=== PATIENT | female | born 1960 | race Caucasian/White ===

== ENCOUNTER → 2016-09-16 | Outpatient (CLI) | payer OTHER ==
[~2016-09-16] MED LIST: ASTN; ATEN-173 PO; ATOR10TA82 PO; DOCU100C PO; FEXO1TAB46 PO; FIBER PO; LOSA1TAB PO; MISCCAP80 PO; MONT1TAB5 PO; MTR/600 PO; PRED1SUS3 OP; PROAIR INH; TRIA37.5 PO
[2016-09-16 13:09] LABS: BASO % 0.7 %; BASO ABS # 0.04 K/uL (0-0.2); COMPLETE YES; EOS % 2.2 %; HEMATOCRIT 46.7 % (37-47); IG% 0.3 %; LYMPH % 30.8 %; LYMPH ABS # 1.84 K/uL (1.2-3.4); MEAN CELL VOLUME 90.7 fL (80-100); MEAN CORPUSCULAR HEMOGLOBIN 31.5 pg (25-34); MEAN CORPUSCULAR HGB CONC 34.7 g/dl (32-36); MEAN PLATELET VOLUME 8.8 fL (7.4-10.4); MONO % 9.9 %; NEUT % 56.1 %; PLATELET COUNT 402 K/uL (130-400); RED BLOOD COUNT 5.15 M/uL (4.2-5.4); WHITE BLOOD COUNT 5.98 K/uL (4.8-10.8)
[2016-09-16 13:45] LABS: ALB/GLOB RATIO 1.2 (0.9-2); ALKALINE PHOSPHATASE 65 U/L (45-117); ALT/SGPT 33 U/L (12-78); AST/SGOT 25 U/L (15-37); BLOOD UREA NITROGEN 11 mg/dl (7-18); BUN/CREATININE RATIO 12.3 (10-20); CALCIUM 9.8 mg/dl (8.5-10.1); CARBON DIOXIDE 32 mmol/L (21-32); CHLORIDE 97 mmol/L (98-107); CHOLESTEROL 234 mg/dl (0-200); CHOLESTEROL/HDL RATIO 3.7; CREATININE 0.88 mg/dl (0.60-1.20); GLUCOSE 78 mg/dl (70-99); HDL CHOLESTEROL 64 mg/dl; LDL CHOLESTEROL CALCULATED 137 mg/dl; POTASSIUM 4.2 mmol/L (3.5-5.1); SODIUM 132 mmol/L (136-145); TRIGLYCERIDES 165 mg/dl (0-150); VERY LOW DENSITY LIPOPROT CALC 33 mg/dl
== END | disposition home or self-care (01) ==
LOC: C.LABPVFM 08:52
PROVIDERS: ATTEND Internal Medicine
DX: J45.909 Unspecified asthma, uncomplicated (principal); E87.1 Hypo-osmolality and hyponatremia; E78.5 Hyperlipidemia, unspecified

== ENCOUNTER → 2016-11-27 | Outpatient (CLI) | payer OTHER ==
--- NOTE | 2016-11-27 12:18 | DIAGNOSTIC IMAGING REPORT ---
CHEST 2 VIEWS ROUTINE HISTORY:56 [id number] cough COMPARISON: None available TECHNIQUE: Frontal and lateral views of the chest FINDINGS: Cardiomediastinal and hilar silhouettes are within normal limits. There is no pneumothorax, pleural effusion, focal airspace consolidation or overt pulmonary edema. There is convex right curvature of the lumbar spine, only partially imaged. The bones appear grossly intact. IMPRESSION: No acute cardiopulmonary process. The above report was generated using voice recognition software. It may contain grammatical, syntax or spelling errors. Electronically signed by: Reagan Douglas M.D. 11/27/2016 12:17 PM Dictated Date/Time: 11/27/2016 12:15 PM
== END | disposition home or self-care (01) ==
LOC: C.RAD1850 11:44
PROVIDERS: ATTEND Physician Assistant
DX: R05 Cough (principal)

== ENCOUNTER 2017-03-28 18:53 | Emergency (ER) | payer OTHER ==
[~2017-03-28] VITALS: Ht 152.4 cm; Wt 69.2 kg
[2017-03-28 19:07] VITALS: Ht 152.4 cm; Wt 69.2 kg
[2017-03-28] MEDS ORDERED: LOSARTAN POTASSIUM 25 MG TAB PO STA (19:16)
[2017-03-28] MEDS ORDERED: KETOROLAC TROMETHAMINE 30 MG/ML VIAL IV STA (19:16)
[2017-03-28] MEDS ORDERED: ONDANSETRON 4MG OD TAB PO ONE (19:30)
--- NOTE | 2017-03-28 19:41 | EMERGENCY ROOM VISIT NOTE ---
History Report prepared by Milly: Giovanni Guerrero Under the Supervision of: Dr. Markus Aparicio M.D. First contact with patient: 19:15 Chief Complaint: ABDOMINAL PAIN Stated Complaint: LOW ABD PAIN GOING TO BACK History of Present Illness The patient is a 56 year old female who presents to the Emergency Room with complaints of intermittent lower abdominal pain beginning three days ago. She states that she began feeling ill three days ago. She states that she defecated less than normal two days ago during the day, and had a large bowel movement at night. The patient had a similar pattern occur yesterday. She was seen by her PCP today and was schedule for an abdominal ultrasound tomorrow. She took Gas-X and Correctol for her symptoms but has seen no relief. The patient also complains of nausea and pain radiating into her back. She denies vomiting, cough , known fevers, chills, or urinary symptoms. She has a history of similar pain associated with IBS, but states that her pain was a little higher in her abdomen previously. The patient states that her pain is currently worse in her right back than across the front of the abdomen. Source of History: patient Onset: Three days ago Position: abdomen (lower) Timing: intermittent Associated Symptoms: + nausea, + back pain, No fevers (known), No chills, No cough, No vomiting Review of Systems See HPI for pertinent positives & negatives. A total of 10 systems reviewed and were otherwise negative. Past Medical & Surgical Medical Problems: (1) IBS (irritable bowel syndrome) (2) No Known Active Medical Problems Family History No pertinent family history stated. Social History Smoking Status: Never Smoker Occupation Status: employed Allergies Coded Allergies: Apple (Verified Allergy, Severe, SWELLING, 06/18/09) Fish Oil (Verified Allergy, Severe, SWELLING AND ASTHMA, 06/18/09) NUTS (Verified Allergy, Severe, SWELLING AND ASTHMA, 12/13/03) Sulfa Drugs (Verified Allergy, Severe, SWELLING AND ASTHMA, 06/18/09) Physical Exam Vital Signs Date Time Temp Pulse Resp B/P (MAP) Pulse Ox O2 Delivery O2 Flow Rate FiO2 03/28/17 19:15 36.8 69 20 180/103 96 Room Air 03/28/17 19:07 36.7 80 18 189/103 97 Room Air Physical Exam GENERAL: Patient is in no acute distress. HEENT: No acute trauma, normocephalic atraumatic, mucous membranes moist, no nasal congestion, no scleral icterus. NECK: No stridor, no adenopathy, no meningismus, trachea is midline. LUNGS: Clear to auscultation bilaterally, no wheeze, no rhonchi, breath sounds equal. HEART: Without murmurs gallops or rubs, regular rate and rhythm. ABDOMEN: Soft, bowel sounds positive, no hernias, no peritonitis. Mildly tender in the RLQ. EXTREMITIES: No cyanosis or edema, full range of motion of all the joints without pain or difficulty, no signs for acute trauma. NEUROLOGIC: Oriented x 3, no acute motor or sensory deficits, no focal weakness. SKIN: No rash, no jaundice, no diaphoresis. Medical Decision & Procedures Laboratory Results 03/28/17 19:55 Red Blood Count 4.90, Mean Corpuscular Volume 87.8, Mean Corpuscular Hemoglobin 31.8, Mean Corpuscular Hemoglobin Concent 36.3, Mean Platelet Volume 8.5, Neutrophils (%) (Auto) 72.1, Lymphocytes (%) (Auto) 22.0, Monocytes (%) (Auto) 5.1, Eosinophils (%) (Auto) 0.4, Basophils (%) (Auto) 0.2, Neutrophils # (Auto) 7.14, Lymphocytes # (Auto) 2.18, Monocytes # (Auto) 0.51, Eosinophils # (Auto) 0.04, Basophils # (Auto) 0.02 Test 03/28/17 19:35 03/28/17 19:55 Urine Color YELLOW Urine Appearance CLEAR (CLEAR) Urine pH 6.5 (4.5-7.5) Urine Specific [place] 1.013 (1.000-1.030) Urine Protein 2+ (NEG) Urine Glucose (UA) NEG (NEG) Urine Ketones 1+ (NEG) Urine Occult Blood TRACE (NEG) Urine Nitrite NEG (NEG) Urine Bilirubin NEG (NEG) Urine Urobilinogen NEG (NEG) Urine Leukocyte Esterase NEG (NEG) Urine WBC (Auto) 1-5 /hpf (0-5) Urine RBC (Auto) 0-4 /hpf (0-4) Urine Hyaline Casts (Auto) 1-5 /lpf (0-5) Urine Epithelial Cells (Auto) 5-10 /lpf (0-5) Urine Bacteria (Auto) NEG (NEG) White Blood Count 9.91 K/uL (4.8-10.8) Red Blood Count 4.90 M/uL (4.2-5.4) Hemoglobin 15.6 g/dL (12.0-16.0) Hematocrit 43.0 % (37-47) Mean Corpuscular Volume 87.8 fL (80-100) Mean Corpuscular Hemoglobin 31.8 pg (25-34) Mean Corpuscular Hemoglobin Concent 36.3 g/dl (32-36) Platelet Count 340 K/uL (130-400) Mean Platelet Volume 8.5 fL (7.4-10.4) Neutrophils (%) (Auto) 72.1 % Lymphocytes (%) (Auto) 22.0 % Monocytes (%) (Auto) 5.1 % Eosinophils (%) (Auto) 0.4 % Basophils (%) (Auto) 0.2 % Neutrophils # (Auto) 7.14 K/uL (1.4-6.5) Lymphocytes # (Auto) 2.18 K/uL (1.2-3.4) Monocytes # (Auto) 0.51 K/uL (0.11-0.59) Eosinophils # (Auto) 0.04 K/uL (0-0.5) Basophils # (Auto) 0.02 K/uL (0-0.2) RDW Standard Deviation 39.4 fL (36.4-46.3) RDW Coefficient of Variation 12.3 % (11.5-14.5) Immature Granulocyte % (Auto) 0.2 % Immature Granulocyte # (Auto) 0.02 K/uL (0.00-0.02) Laboratory results reviewed by me. Medications Administered Medications (Trade) Dose Ordered Sig/Anupam Route Start Time Stop Time Status Last Admin Dose Admin Ondansetron HCl (Zofran Odt) 4 mg ONE ONCE PO 03/28/17 19:30 03/28/17 19:31 DC 03/28/17 20:01 4 MG Ketorolac Tromethamine (Toradol Inj) 30 mg NOW STAT IV 03/28/17 19:16 03/28/17 19:26 DC 03/28/17 20:00 30 MG Losartan Potassium (coZAAR TAB) 25 mg NOW STAT PO 03/28/17 19:16 03/28/17 19:26 DC 03/28/17 20:01 25 MG ED Course 1915: The patient was evaluated in room C10. A complete history and physical exam was performed. Ordered Cozaar Tab 25 mg PO, Toradol Inj 30 mg IV. 1929: Ordered Zofran Odt 4 mg PO. 2029: The patient was signed out to Dr. Gay at the change of shift pending CT results. Medical Decision The patient is a 56 year old female who presents to the ED with complaints of lower abdominal pain. Differential diagnoses considered include constipation, appendicitis, diverticulitis, pancreatitis, biliary colic, hernia, ovarian cyst , musculoskeletal pain and UTI. There is no leukocytosis or concerning anemia. Urinalysis does not show evidence for infection. Renal panel and liver profile testing is currently pending. Pancreas testing is pending. Abdominal and pelvis CT is pending. On exam, the patient was not febrile or toxic. There was no peritonitis. The patient presents with a few days of colicky abdominal pain which now seems mostly to be on the right side and into the right back. Her symptoms worsened today and she was referred to the ER. The cause for the pain is unclear. Her workup is underway. The patient did receive IV Toradol and oral Zofran for symptom control. She was hypertensive but had not taken her Cozaar today. She was given this medication orally. The patient's case is being assumed by Dr. Gay, please see his notes for the remaining test results and the final disposition and plan. Medication Reconcilliation Current Medication List: was personally reviewed by me Blood Pressure Screening Patient's blood pressure: Elevated blood pressure Blood pressure disposition: Referred to PCP Impression Primary Impression: Right sided abdominal pain Scribe Attestation The scribe's documentation has been prepared under my direction and personally reviewed by me in its entirety. I confirm that the note above accurately reflects all work, treatment, procedures, and medical decision making performed by me. Departure Information Dispostion Still a Patient (Signed out to Dr. Gay ) Referrals Mathew Montelongo M.D. (PCP) Patient Instructions [facility]
[2017-03-28] MEDS ORDERED: OPTIRAY 320 IV PRN (19:45)
[2017-03-28 20:18] LABS: BASO % 0.2 %; BASO ABS # 0.02 K/uL (0-0.2); COMPLETE YES; EOS % 0.4 %; IG% 0.2 %; LYMPH ABS # 2.18 K/uL (1.2-3.4); MEAN CELL VOLUME 87.8 fL (80-100); MEAN CORPUSCULAR HEMOGLOBIN 31.8 pg (25-34); MEAN CORPUSCULAR HGB CONC 36.3 g/dl (32-36); MEAN PLATELET VOLUME 8.5 fL (7.4-10.4); MONO % 5.1 %; NEUT % 72.1 %; PLATELET COUNT 340 K/uL (130-400); WHITE BLOOD COUNT 9.91 K/uL (4.8-10.8)
[2017-03-28 20:29] LABS: MANUAL MICROSCOPIC REQUIRED? NO; REVIEW REQ? NO; URINE APPEARANCE CLEAR (CLEAR); URINE BILIRUBIN NEG (NEG); URINE COLOR YELLOW; URINE NITRITE NEG (NEG); URINE PH 6.5 (4.5-7.5); URINE SPECIFIC GRAVITY 1.013 (1.000-1.030); UROBILINOGEN NEG (NEG); ZZUR CULT IF INDIC CLEAN CATCH NO
--- NOTE | 2017-03-28 20:30 | EMERGENCY ROOM VISIT NOTE ---
ED Visit Note First contact with patient: 20:30 s/o from Dr. Aparicio. RLQ pain. CT abd-pel pending. Labs pending. If negative d/c with pcp f/u. WBC within normal limits. Otherwise patient does have a mildly low sodium at 129 setting of a history of fluctuating sodium levels followed by her doctor for this. UA with small amount of blood however has a nonobstructing right renal stone which may explain, although unlikely to explain the patient's pain given its nonobstructing nature. Otherwise CT abdomen and pelvis did demonstrate question of a mild colitis though the patient has no left upper quadrant or left-sided discomfort. However, it is possible that the sigmoid component could explain some of her right-sided symptoms. I reevaluated the patient and the patient felt improved and no longer had any pain. I did explain that there were no clear right-sided findings to explain her pain and thus an intermittent ovarian torsion could be possible. The patient preferred to defer transvaginal ultrasound at this time and will continue to monitor symptoms and knows to return if symptoms return. Findings and plan for follow- up reviewed with patient. Patient agreeable and d/c'd per discharge instructions.
[2017-03-28 20:43] LABS: BUN/CREATININE RATIO 9.6 (10-20); CALCIUM 9.4 mg/dl (8.5-10.1); CREATININE 0.69 mg/dl (0.60-1.20); POTASSIUM 3.3 mmol/L (3.5-5.1)
[2017-03-28 20:46] LABS: ALB/GLOB RATIO 1.2 (0.9-2)
[2017-03-28] MEDS ORDERED: PROAIR INH (21:11)
[2017-03-28] MEDS ORDERED: MONT1TAB5 PO (21:11)
[2017-03-28] MEDS ORDERED: FEXO1TAB46 PO (21:11)
[2017-03-28] MEDS ORDERED: ATEN-173 PO (21:11)
[2017-03-28] MEDS ORDERED: DOCU100C PO (21:11)
[2017-03-28] MEDS ORDERED: LOSA1TAB PO (21:11)
[2017-03-28] MEDS ORDERED: MISCCAP80 PO (21:11)
[2017-03-28] MEDS ORDERED: PRED1SUS3 OP (21:11)
[2017-03-28] MEDS ORDERED: ASTN (21:11)
[2017-03-28] MEDS ORDERED: TRIA37.5 PO (21:11)
[2017-03-28] MEDS ORDERED: FIBER PO (21:11)
[2017-03-28] MEDS ORDERED: ATOR10TA82 PO (21:11)
--- NOTE | 2017-03-28 22:41 | DIAGNOSTIC IMAGING REPORT ---
ABDOMEN AND PELVIS CT WITH IV CONTRAST CT DOSE: 388.58 mGy.cm HISTORY: Acute generalized abdominal pain. Initial exam. ABD PAIN, POSS APPY or divertic, IV CONTRAST ONLY TECHNIQUE: Multiaxial CT images of the abdomen and pelvis were performed following the use of intravenous contrast. A dose lowering technique was utilized adhering to the principles of ALARA. COMPARISON STUDY: None. FINDINGS: Lung bases are generally clear with minimal bibasilar atelectasis. No pneumoperitoneum identified. Imaged inferior cardiac chambers are unremarkable. 6 mm low attenuating lesion of the left hepatic lobe suggests cyst. There is no intrahepatic biliary ductal dilation. The spleen, pancreas, gallbladder and adrenal glands are unremarkable. There is moderate to severe right renal atrophy with multifocal areas of renal parenchymal scarring. Nonobstructing 3 mm calculus of the inferior pole right kidney is noted. Areas of mild cortical scarring are seen throughout the left kidney. No hydronephrosis. Bilateral ureters appear normal. Uterus and adnexa are unremarkable. The aorta is normal in course and caliber with moderate mixed plaquing. No bulky adenopathy. There is no bowel obstruction identified. There is moderate wall thickening of the colon extending from the splenic flexure through the rectum. Mild clonic diverticulosis without evidence of acute diverticulitis. Areas of mild wall thickening also seen throughout the transverse colon with partial distention. Pancreas appears normal. Soft tissues are unremarkable. Multilevel degenerative changes of the spine. Dextroscoliosis of the lumbar spine. IMPRESSION: 1. Moderate wall thickening of the colon extending from the splenic flexure through the rectum is suspicious for mild colitis. Nondistention however may also cause this appearance. 2. Colonic diverticulosis without diverticulitis. 3. Normal appendix. 4. Moderate to severe atrophy with multifocal scarring of the right kidney. 3 mm nonobstructing calculus of the inferior pole right kidney also noted. Electronically signed by: Reagan Douglas M.D. 03/28/2017 10:39 PM Dictated Date/Time: 03/28/2017 10:34 PM
[2017-03-28] MEDS ORDERED: MTR/600 PO (23:17)
[2017-03-28] MEDS ORDERED: IBUPROFEN 600 MG TAB PO STA (23:18)
[2017-03-28] MEDS ORDERED: EMPTY 8 DRAM VIAL ONE (23:28)
[2017-03-28 23:33] VITALS: BP 162/103; PULSE 77; TEMP 36.7; O2SAT 96
== END 2017-03-28 23:42 | disposition home or self-care (01) ==
LOC: C.EDB 18:54 → C.EDC 23:42
DX: R10.31 Right lower quadrant pain (principal); K58.9 Irritable bowel syndrome, unspecified

== ENCOUNTER → 2017-09-22 | Outpatient (CLI) | payer OTHER ==
[2017-09-22 13:09] LABS: HEMATOCRIT 45.8 % (37-47); HEMOGLOBIN 16.5 g/dL (12.0-16.0); MEAN CELL VOLUME 89.3 fL (80-100); MEAN CORPUSCULAR HEMOGLOBIN 32.2 pg (25-34); PLATELET COUNT 426 K/uL (130-400); RED CELL DISTRIBUTION WIDTH CV 12.5 % (11.5-14.5); RED CELL DISTRIBUTION WIDTH SD 40.4 fL (36.4-46.3)
[2017-09-22 13:21] LABS: ALT/SGPT 33 U/L (12-78); AST/SGOT 25 U/L (15-37); BLOOD UREA NITROGEN 10 mg/dl (7-18); CARBON DIOXIDE 25 mmol/L (21-32); CREATININE 0.82 mg/dl (0.60-1.20); GLUCOSE 77 mg/dl (70-99); POTASSIUM 3.8 mmol/L (3.5-5.1); SODIUM 135 mmol/L (136-145)
[2017-09-22 13:24] LABS: CHOLESTEROL 238 mg/dl (0-200); LDL CHOLESTEROL CALCULATED 154 mg/dl
== END | disposition home or self-care (01) ==
LOC: C.LAB1850 09:43
PROVIDERS: ATTEND Internal Medicine
DX: E78.5 Hyperlipidemia, unspecified (principal); N20.0 Calculus of kidney; I10 Essential (primary) hypertension; E87.1 Hypo-osmolality and hyponatremia

== ENCOUNTER 2019-06-15 08:16 | Inpatient (IN) ==
[2019-06-15] MEDS ORDERED: ONDANSETRON INJ 2 MG/ML 2 ML VIAL IV STA (09:00)
[2019-06-15] MEDS ORDERED: MoRPHine SULFATE 4 MG/ML 1 ML CARP\\VIAL IV STA (09:00)
[2019-06-15] MEDS ORDERED: SODIUM CHLORIDE 0.9% 1000ML 1,000 ML IV SCH (09:01)
--- NOTE | 2019-06-15 09:06 | Emergency Department Note ---
History of Present Illness General Chief complaint: Abdominal Pain Stated complaint: ABDOMINAL PAIN, LOW GRADE FEVER Time Seen by Provider: 06/15/19 08:41 History of Present Illness Maximum Pain Intensity: 9 Patient is a 50-year-old female with past medical history significant for dyslipidemia, hypertension and IBS who presents the emergency department for evaluation of diffuse abdominal pain. Her symptoms started about 4 days ago. She describes pain from the lower ribs down to her hips. She admits to nausea and anorexia without vomiting. The pain eased 2 days ago, she was mostly pain- free yesterday, then the discomfort returned this morning around 0 630. She states that she woke up, had a normal bowel movement, then the pain returned. She notes a constant, stabbing pain throughout the entire anterior abdomen. She states that she felt nauseous but did not vomit. She reports pressure with urination, but denies dysuria or hematuria. She tried taking ibuprofen for her symptoms. She rates her pain a 9/10 currently. She denies melena or hematochezia. She is postmenopausal. No history of abdominal surgeries. She does report that she was told that she had a kidney stone the last time she was in the emergency department. Home Medications Home Medications Medication Instructions Recorded Confirmed Type carvedilol 12.5 mg tablet 12.5 mg PO BID 01/08/19 06/15/19 History docusate sodium 100 mg capsule 100 mg PO BID PRN #60 cap 01/08/19 06/15/19 History epinephrine 0.3 mg/0.3 mL 0.3 mg IM UD PRN #1 ea 01/08/19 06/15/19 History injection, auto-injector fexofenadine 180 mg tablet 180 mg PO QAM tab 01/08/19 06/15/19 History losartan 50 mg tablet 50 mg PO QAM #90 tab 01/08/19 06/15/19 History prednisolone acetate 1 % eye 1 drops OP QAM ml 01/08/19 06/15/19 History drops,suspension psyllium husk 0.52 gram capsule 2.08 gm PO QAM cap 01/08/19 06/15/19 History triamterene 37.5 1 tab PO QAM #45 tab 01/08/19 06/15/19 History mg-hydrochlorothiazide 25 mg tablet albuterol sulfate 90 mcg/actuation 1 - 2 puffs INHALATION Q4H PRN #8 02/18/19 06/15/19 Rx aerosol inhaler gm azelastine 137 mcg (0.1 %) nasal 2 sprays INTRANASAL BID #30 ml 05/20/19 06/15/19 Rx spray aerosol atorvastatin 10 mg PO Q5D 06/15/19 06/15/19 History calcium polycarbophil [Fiber-Tabs] 1,875 mg PO QAM 06/15/19 06/15/19 History montelukast 10 mg PO PM 06/15/19 06/15/19 History Allergies Allergy/AdvReac Type Severity Reaction Status Date / Time apple Allergy Severe SWELLING Verified 06/15/19 08:56 fish oil Allergy Severe SWELLING Verified 06/15/19 08:56 AND ASTHMA nut - unspecified Allergy Severe SWELLING Verified 06/15/19 08:56 AND ASTHMA [id number] Reductase Allergy Severe MUSCLE Verified 06/15/19 08:56 Inhibitor ACHES Sulfa (Sulfonamide Allergy Severe SWELLING Verified 06/15/19 08:56 Antibiotics) AND ASTHMA Past Med/Surg History Medical History Aortic stenosis, mild (Chronic) Asthma (Chronic) Bicuspid aortic valve (Chronic) History of cardiomyopathy History of tenosynovitis Hyperlipidemia (Chronic) Hypertension (Chronic) IBS (irritable bowel syndrome) (Chronic) Lumbar radiculopathy (Chronic) Surgical History H/O eye surgery Status post corneal transplant Family History Father Hodgkins disease Social History Preferred Language: Yi Communication Ability: Effective Visual Impairment: No Limitations Hearing Ability: Normal marital status: Single Feels Safe at Home: Yes Smoking Status: Never smoker Hx Alcohol Use: No Hx Substance Use: No Seatbelt Use: always Review of Systems A total of 10 systems reviewed and were otherwise negative Physical Exam Vital Signs Vital Signs - 24 hr 06/15/19 08:19 06/15/19 09:35 06/15/19 09:47 Temperature 36.9 C Temperature Source Oral Pulse Rate 101 H 100 H 101 H Pulse Rate from SpO2 Sensor 106 H 99 H Respiratory Rate 20 26 H 26 H Respiratory Effort / Characteristics Non-Labored Spontaneous Respiratory Depth Normal Respiratory Pattern Regular Blood Pressure 127/83 136/81 Blood Pressure Mean 97 94 Blood Pressure Position Sitting Pulse Oximetry 93 93 96 Oxygen Delivery Method Room Air Sepsis Recent Fever Within 48 Hours No Sepsis New/Unexplained Change in Mental Status No Sepsis Action Taken by Nursing No Action Required 06/15/19 10:00 06/15/19 10:01 06/15/19 10:10 Temperature Temperature Source Pulse Rate 105 H 110 H 108 H Pulse Rate from SpO2 Sensor 104 H 110 H Respiratory Rate 19 20 20 Respiratory Effort / Characteristics Respiratory Depth Respiratory Pattern Blood Pressure 128/99 Blood Pressure Mean 106 Blood Pressure Position Pulse Oximetry 95 95 Oxygen Delivery Method Sepsis Recent Fever Within 48 Hours Sepsis New/Unexplained Change in Mental Status Sepsis Action Taken by Nursing 06/15/19 10:20 06/15/19 10:30 06/15/19 10:31 Temperature Temperature Source Pulse Rate 106 H 105 H 105 H Pulse Rate from SpO2 Sensor Respiratory Rate 27 H 25 H 22 Respiratory Effort / Characteristics Respiratory Depth Respiratory Pattern Blood Pressure 126/79 Blood Pressure Mean 91 Blood Pressure Position Pulse Oximetry Oxygen Delivery Method Sepsis Recent Fever Within 48 Hours Sepsis New/Unexplained Change in Mental Status Sepsis Action Taken by Nursing 06/15/19 10:40 06/15/19 10:55 06/15/19 10:56 Temperature Temperature Source Pulse Rate 106 H 112 H 114 H Pulse Rate from SpO2 Sensor Respiratory Rate 24 27 H 20 Respiratory Effort / Characteristics Respiratory Depth Respiratory Pattern Blood Pressure 134/85 Blood Pressure Mean 101 Blood Pressure Position Pulse Oximetry Oxygen Delivery Method Sepsis Recent Fever Within 48 Hours Sepsis New/Unexplained Change in Mental Status Sepsis Action Taken by Nursing 06/15/19 11:00 06/15/19 11:01 06/15/19 11:10 Temperature Temperature Source Pulse Rate 113 H 114 H 113 H Pulse Rate from SpO2 Sensor 100 H 114 H 112 H Respiratory Rate 25 H 19 27 H Respiratory Effort / Characteristics Respiratory Depth Respiratory Pattern Blood Pressure 127/85 Blood Pressure Mean 104 Blood Pressure Position Pulse Oximetry 73 L 97 95 Oxygen Delivery Method Sepsis Recent Fever Within 48 Hours Sepsis New/Unexplained Change in Mental Status Sepsis Action Taken by Nursing 06/15/19 11:20 06/15/19 11:30 06/15/19 11:40 Temperature Temperature Source Pulse Rate 115 H 113 H 117 H Pulse Rate from SpO2 Sensor 115 H 114 H 117 H Respiratory Rate 16 19 27 H Respiratory Effort / Characteristics Respiratory Depth Respiratory Pattern Blood Pressure Blood Pressure Mean Blood Pressure Position Pulse Oximetry 95 95 95 Oxygen Delivery Method Sepsis Recent Fever Within 48 Hours Sepsis New/Unexplained Change in Mental Status Sepsis Action Taken by Nursing 06/15/19 12:00 06/15/19 12:01 06/15/19 12:25 Temperature Temperature Source Pulse Rate 121 H 119 H 134 H Pulse Rate from SpO2 Sensor 122 H 118 H 125 H Respiratory Rate 23 23 21 Respiratory Effort / Characteristics Respiratory Depth Respiratory Pattern Blood Pressure 122/63 Blood Pressure Mean 82 89 Blood Pressure Position Pulse Oximetry 95 97 99 Oxygen Delivery Method Sepsis Recent Fever Within 48 Hours Sepsis New/Unexplained Change in Mental Status Sepsis Action Taken by Nursing 06/15/19 12:30 06/15/19 12:31 06/15/19 13:00 Temperature Temperature Source Pulse Rate 121 H 120 H Pulse Rate from SpO2 Sensor 120 H 124 H Respiratory Rate 22 30 H Respiratory Effort / Characteristics Respiratory Depth Respiratory Pattern Blood Pressure 126/72 Blood Pressure Mean 95 Blood Pressure Position Pulse Oximetry 91 96 Oxygen Delivery Method Room Air Sepsis Recent Fever Within 48 Hours Sepsis New/Unexplained Change in Mental Status Sepsis Action Taken by Nursing CONSTITUTIONAL: Patient is an uncomfortable appearing 58-year-old female who is awake and alert and in moderate distress due to her stated complaint. EYES: Pupils equal, round, reactive to light and accommodation. EOMs intact without nystagmus. Sclera are anicteric. ENT: Tympanic membranes intact, with normal landmarks. External canals are clear. Oral and nasopharynx are clear. Mucous membranes are moist, no lesions, tongue and gums appear normal. CARDIOVASCULAR: Regular rate and rhythm, with normal S1 and S2, no murmur or gallop or rub is heard. No carotid bruits auscultated. No JVD. Peripheral pulses easily palpable. RESPIRATORY: Breath sounds equal and clear to auscultation without wheezes, rales, or rhonchi heard. Full and equal chest expansion without accessory muscle use or retractions. ABDOMEN: Bowel sounds are present. Abdomen is obese, soft, nontender to percussion throughout, but diffusely tender to palpation without guarding or rebound. INTEGUMENTARY: No lesions or rash, normal skin turgor. LYMPH: No lymphadenopathy. Course Course The patient was seen and assessed as above. Old records were reviewed. She presents the emergency department for evaluation of diffuse abdominal discomfort that started a few days ago, but acutely worsened this morning. She is noted to be in moderate distress on exam. She is afebrile, but noted to be mildly tachycardic in triage. IV lock was initiated and laboratory studies were collected. CBC with differential, CMP, lipase and urinalysis were ordered. She was hydrated with normal saline solution and medicated with morphine 4 mg and Zofran 4 mg IV. She was made n.p.o. CT scan of the abdomen and pelvis with IV contrast was ordered. Laboratory studies noted a normal white count at 6100, no left shift or bandemia. She is mildly anemic with an 8.2 and H of 10.1 and 28.2. Electrolytes sodium 132, potassium 3.3, chloride 96,, dioxide 25, BUN 18 and creatinine 1.9. Transaminases are not elevated. Lipase is normal. Patient did not provide a urine sample while in the emergency department. The patient was reassessed. She did have fairly good relief with the IV morphine. She was noted to be persistently tachycardic while in the emergency department, otherwise vital signs were stable. CT scan of the abdomen pelvis with IV contrast have been ordered. Patient initially had thought that she was able to tolerate IV contrast, however when it was time for CT scan she refused the IV contrast. She states that it gave her a rash that lasted her for 6 months the last time she had 1. She adamantly refused IV contrast. The noncontrast CT scan was performed. CT scan of the abdomen and pelvis without contrast noted mild colonic divertic ulosis with evidence for acute sigmoid diverticulitis, with multiple foci of intraperitoneal free air, greatest below the diaphragm. There is no organized fluid collection to suggest abscess. Right-sided nephrolithiasis was noted. Atrophy of the right kidney was noted. All laboratory and diagnostic imaging studies were reviewed with attending physician. Zosyn 4.5 mg IV were ordered. CT scan findings and labs were reviewed with the patient. Consultation was placed with general surgery, Dr. Pacheco, who evaluated the patient in the emergency department and will admit her for further care and management. Administered Medications Discontinued Medications Sodium Chloride (Nss 1000ml) 1,000 mls @ 999 mls/hr IV .Q1H1M GREGORY Stop: 06/15/19 10:01 Last Infusion: 06/15/19 10:11 Dose: 0 mls/hr Documented by: [id number] Admin: 06/15/19 09:27 Dose: 999 mls/hr Documented by: [id number] Piperacillin Sod/Tazobactam Sod (Zosyn) 4.5 gm in 120 mls @ 240 mls/hr IV NOW ONE Stop: 06/15/19 12:04 Last Admin: 06/15/19 12:25 Dose: 240 mls/hr Documented by: [id number] Morphine Sulfate (Morphine Sulfate) 4 mg IV NOW STA Stop: 06/15/19 09:01 Last Admin: 06/15/19 09:28 Dose: 4 mg Documented by: [id number] Ondansetron HCl (Zofran) 4 mg IV NOW STA Stop: 06/15/19 09:01 Last Admin: 06/15/19 09:27 Dose: 4 mg Documented by: [id number] Medical Decision Making Differential Diagnosis Differential diagnoses entertained included GERD, gastritis, esophagitis, peptic ulcer disease, perforated ulcer, acute pancreatitis, acute cholecystitis, biliary colic, ascending cholangitis, bowel obstruction, perforation, abscess, mass or malignancy, acute diverticulitis, UTI, pyelonephritis, renal colic, among others. Medical Records Attestation: I reviewed the patient's medical records. Home Medications Current Medication List: was personally reviewed by me Laboratory Data Attestation: I reviewed the patient's lab results. Result diagrams: 06/15/19 10:10 06/15/19 09:10 Lab Results 06/15/19 06/15/19 06/15/19 Range/Units 09:10 09:10 10:10 WBC Cancelled 6.10 RBC Cancelled 3.20 L Hgb Cancelled 10.1 L Hct Cancelled 28.2 L MCV Cancelled 88.1 MCH Cancelled 31.6 MCHC Cancelled 35.8 RDW Std Deviation Cancelled 40.8 RDW Coeff of Kalina Cancelled 12.6 Plt Count Cancelled 272 MPV Cancelled 8.0 Immature Gran % (Auto) Cancelled 0.2 Neut % (Auto) Cancelled 85.7 Lymph % (Auto) Cancelled 7.5 Christian % (Auto) Cancelled 5.6 Eos % (Auto) Cancelled 0.8 Baso % (Auto) Cancelled 0.2 Immature Gran # (Auto) Cancelled 0.01 Neut # (Auto) Cancelled 5.23 Lymph # (Auto) Cancelled 0.46 L Christian # (Auto) Cancelled 0.34 Eos # (Auto) Cancelled 0.05 Baso # (Auto) Cancelled 0.01 Absolute Nucleated RBC Cancelled Nucleated RBC % (auto) Cancelled Neutrophils % (Manual) Cancelled Band Neutrophils % Cancelled Lymphocytes % (Manual) Cancelled Prolymphocyte % Cancelled Reactive Lymphs % (Man) Cancelled Monocytes % (Manual) Cancelled Eosinophils % (Manual) Cancelled Basophils % (Manual) Cancelled Metamyelocytes % (Man) Cancelled Myelocytes % (Man) Cancelled Promyelocytes % (Man) Cancelled Blast Cells % (Manual) Cancelled Plasma Cell % (Manual) Cancelled Other Cells % Cancelled Nucleated RBC % Cancelled Neutrophils # (Manual) Cancelled Band Neutrophils # Cancelled Total Absolute Neuts Cancelled Lymphocytes # (Manual) Cancelled Prolymphocyte # Cancelled Reactive Lymphs # Cancelled Total Abs Lymphocytes Cancelled Monocytes # (Manual) Cancelled Eosinophils # (Manual) Cancelled Basophils # (Manual) Cancelled Metamyelocytes # (Man) Cancelled Myelocytes # (Manual) Cancelled Promyelocytes # (Man) Cancelled Blast Cells # (Man) Cancelled Plasma Cell # (Manual) Cancelled Other Cells # Cancelled Nucleated RBCs # (Man) Cancelled Hypersegmented Neuts Cancelled Hyposegmented Neuts Cancelled Hypogranular Neuts Cancelled Large Granular Lymphs Cancelled # Lrg Granular Lymphs Cancelled Hairy Cells Cancelled Smudge Cells Cancelled Toxic Granulation Cancelled Toxic Vacuolation Cancelled Dohle Bodies Cancelled Evans Rods Cancelled Platelet Estimate Cancelled Hypogranular Platelets Cancelled Clumped Platelets Cancelled Giant Platelets Cancelled Platelet Satelliting Cancelled RBC Morphology Cancelled Polychromasia Cancelled Hypochromasia Cancelled Poikilocytosis Cancelled Basophilic Stippling Cancelled Anisocytosis Cancelled Microcytosis Cancelled Macrocytosis Cancelled Spherocytes Cancelled Pappenheimer Bodies Cancelled Sickle Cells Cancelled Target Cells Cancelled Tear Drop Cells Cancelled Ovalocytes Cancelled Stomatocytes Cancelled Teran-Kila Bodies Cancelled Echinocytes Cancelled Acanthocytes (Spur) Cancelled Rouleaux Cancelled RBC Agglutinates Cancelled Schistocytes Cancelled RBC Morph Comment Cancelled Sezary Cell Cancelled Sodium 132 L (136-145) mmol/L Potassium 3.3 L (3.5-5.1) mmol/L Chloride 96 L (98-107) mmol/L Carbon Dioxide 25 (21-32) mmol/L Anion Gap 11.0 (3-11) BUN 18 (7-18) mg/dl Creatinine 1.90 H (0.6-1.2) mg/dl Est Cr Clr Drug Dosing 28.3 ml/min Est GFR ( Amer) 33.1 Est GFR (Non-Af Amer) 28.6 BUN/Creatinine Ratio 9.5 L (10-20) Glucose 110 H (70-99) mg/dl Calcium 9.8 (8.5-10.1) mg/dl Total Bilirubin 0.7 (0.2-1) mg/dl AST 27 (15-37) U/L ALT 29 (12-78) U/L Alkaline Phosphatase 112 (45-117) U/L Total Protein 9.0 H (6.4-8.2) gm/dl Albumin 3.9 (3.4-5.0) gm/dl Globulin 5.0 H (2.5-4.0) gm/dl Albumin/Globulin Ratio 0.8 L (0.9-2) Lipase 131 (73-393) U/L Specimen Hemolysis Imaging Data Attestation: I personally reviewed and interpreted this imaging study as f jacqui: Radiologist's Impression: CT SCAN OF THE ABDOMEN AND PELVIS WITHOUT IV CONTRAST CLINICAL HISTORY: Generalized abdominal pain. COMPARISON STUDY: Abdominal CT dated 03/28/2017. TECHNIQUE: CT scan of the abdomen and pelvis is performed from the lung bases to the proximal femora. Images are reviewed in the axial, sagittal, and coronal planes. The patient declined IV contrast. Note that the examination is suboptimal without oral and IV contrast. A dose lowering technique was utilized adhering to the principles of ALARA. CT DOSE: 474.24 mGy.cm FINDINGS: Lung bases: The heart is normal in size and there is a small pericardial effusion. The coronary arteries are densely calcified. The lung bases are clear noting bibasilar scarring/atelectasis. A small to moderate hiatal hernia is noted. Liver: The unenhanced liver is normal in size, contour, and attenuation. There is no intrahepatic biliary ductal dilatation. Gallbladder: Unremarkable. Spleen: Normal in size and attenuation. Pancreas: The unenhanced pancreas is mildly atrophic and grossly unremarkable. Adrenal glands: Unremarkable. Kidneys: There is asymmetric cortical atrophy of the right kidney as compared to left. No hydronephrosis is seen. There are least 2 small nonobstructing right renal calculi. No left renal calculi are seen. There is no evidence of contour deforming renal mass lesion. Abdominal vasculature: The abdominal aorta is normal in course and caliber noting advanced atherosclerotic calcification. Bowel: There is no bowel obstruction. There is mild colonic diverticulosis. There is significant wall thickening with pericolonic infiltration and fluid seen involving the sigmoid colon. This is consistent with acute diverticulitis. No organized fluid collection is seen on this unenhanced examination to suggest abscess. The appendix is normal as visualized. Peritoneum: There are numerous foci of intraperitoneal free air identified, greatest below the diaphragm. There is trace free fluid in the pelvis. Lymphadenopathy: None. Pelvic viscera: The bladder, uterus, and adnexa are normal as visualized. Skeletal structures: The skeletal structures are osteopenic. There is moderate lumbosacral spondylosis and scoliosis. No lytic or blastic lesions are seen. IMPRESSION: 1. Suboptimal examination without IV contrast. 2. Mild colonic diverticulosis with evidence of acute sigmoid diverticulitis. 3. Intraperitoneal free air indicates perforation. 4. No organized fluid collection is seen on this unenhanced examination to suggest abscess. 5. There is asymmetric cortical atrophy of the right kidney as compared to the left. 6. Right-sided nephrolithiasis. 7. Additional findings as above. Blood Pressure Blood Pressure Findings: Normal blood pressure Blood Pressure Disposition: did not require urgent referral MDM Narrative See emergency department course. Impression & Plan Perforation of sigmoid colon due to diverticulitis Discharge Plan Visit Data Chief Complaint: Abdominal Pain Stated Complaint: ABDOMINAL PAIN, LOW GRADE FEVER ED Provider: Michael Duncan ED Midlevel Provider: Sonali Sutherland Discharge Problem: Perforation of sigmoid colon due to diverticulitis Patient Disposition: Admitted As Inpatient Discharge Instructions Interventions: ED Discharge Assessment Last Done: 06/15/19 13:00 Forms Stand Alone Forms: Call Back Authorization, [facility] [employer] Prescriptions Prescriptions: No Action albuterol sulfate 90 mcg/actuation HFA aerosol inhaler 1 - 2 puffs inhalation Q4H PRN (Reason: shortness of breath) Qty: 8 RF: 3 azelastine 137 mcg (0.1 %) aerosol,spray 2 sprays intranasal BID Qty: 30 RF: 3 psyllium husk 0.52 gram capsule 2.08 gm PO QAM RF: 0 carvedilol [Coreg] 12.5 mg tablet 12.5 mg PO BID RF: 0 docusate sodium 100 mg capsule 100 mg PO BID PRN (Reason: constipation) Qty: 60 RF: 0 losartan 50 mg tablet 50 mg PO QAM Qty: 90 RF: 0 epinephrine 0.3 mg/0.3 mL auto-injector 0.3 mg IM UD PRN (Reason: anaphylaxis) Qty: 1 RF: 0 fexofenadine 180 mg tablet 180 mg PO QAM RF: 0 triamterene-hydrochlorothiazid 37.5-25 mg tablet 1 tab PO QAM Qty: 45 RF: 0 prednisolone acetate 1 % drops,suspension 1 drops OP QAM RF: 0 calcium polycarbophil [Fiber-Tabs] 625 mg Tablet 1,875 mg PO QAM RF: 0 montelukast 10 mg tablet 10 mg PO PM RF: 0 atorvastatin 10 mg tablet 10 mg PO Q5D RF: 0 Referrals Referrals: Mathew Montelongo MD [Primary Care Provider] -
[2019-06-15 10:25] LABS: Albumin Globulin Ratio 0.8 (0.9-2); Albumin Level 3.9 gm/dl (3.4-5.0); BUN Creatinine Ratio 9.5 (10-20); Bilirubin,Total 0.7 mg/dl (0.2-1); Calcium 9.8 mg/dl (8.5-10.1); Creatinine Clr Calc Pharmacy 28.3 ml/min; Est GFR (African American) 33.1; Est GFR (Non-African American) 28.6; Potassium 3.3 mmol/L (3.5-5.1)
[2019-06-15 10:37] LABS: Basophils # (auto) 0.01 K/uL (0-0.2); Basophils % (auto) 0.2 %; Eosinophils # (auto) 0.05 K/uL (0-0.5); Eosinophils % (auto) 0.8 %; Hematocrit (blood only) 28.2 % (37-47); Hemoglobin 10.1 g/dL (12.0-16.0); Immature Granulocytes # (auto) 0.01 K/uL (0.00-0.02); Immature Granulocytes % (auto) 0.2 %; Lymphocytes # (auto) 0.46 K/uL (1.2-3.4); Lymphocytes % (auto) 7.5 %; Mean Corpuscular Hemoglobin 31.6 pg (25-34); Mean Corpuscular Hgb Conc 35.8 g/dL (32-36); Mean Corpuscular Volume 88.1 fL (80-100); Monocytes # (auto) 0.34 K/uL (0.11-0.59); Monocytes % (auto) 5.6 %; Neutrophils # (auto) 5.23 K/uL (1.4-6.5); Neutrophils % (auto) 85.7 %; Platelet Count 272 K/uL (130-400); RDW Coefficient of Variation 12.6 % (11.5-14.5); RDW Standard Deviation 40.8 fL (36.4-46.3)
--- NOTE | 2019-06-15 11:29 | CT Scan Report ---
CT SCAN OF THE ABDOMEN AND PELVIS WITHOUT IV CONTRAST CLINICAL HISTORY: Generalized abdominal pain. COMPARISON STUDY: Abdominal CT dated 03/28/2017. TECHNIQUE: CT scan of the abdomen and pelvis is performed from the lung bases to the proximal femora. Images are reviewed in the axial, sagittal, and coronal planes. The patient declined IV contrast. No te that the examination is suboptimal without oral and IV contrast. A dose lowering technique was uti lized adhering to the principles of ALARA. CT DOSE: 474.24 mGy.cm FINDINGS: Lung bases: The heart is normal in size and there is a small pericardial effusion. The coronary arter ies are densely calcified. The lung bases are clear noting bibasilar scarring/atelectasis. A small to moderate hiatal hernia is noted. Liver: The unenhanced liver is normal in size, contour, and attenuation. There is no intrahepatic morelia iary ductal dilatation. Gallbladder: Unremarkable. Spleen: Normal in size and attenuation. Pancreas: The unenhanced pancreas is mildly atrophic and grossly unremarkable. Adrenal glands: Unremarkable. Kidneys: There is asymmetric cortical atrophy of the right kidney as compared to left. No hydronephro sis is seen. There are least 2 small nonobstructing right renal calculi. No left renal calculi are se en. There is no evidence of contour deforming renal mass lesion. Abdominal vasculature: The abdominal aorta is normal in course and caliber noting advanced atheroscle rotic calcification. Bowel: There is no bowel obstruction. There is mild colonic diverticulosis. There is significant wall thickening with pericolonic infiltration and fluid seen involving the sigmoid colon. This is consist ent with acute diverticulitis. No organized fluid collection is seen on this unenhanced examination t o suggest abscess. The appendix is normal as visualized. Peritoneum: There are numerous foci of intraperitoneal free air identified, greatest below the diaphr agm. There is trace free fluid in the pelvis. Lymphadenopathy: None. Pelvic viscera: The bladder, uterus, and adnexa are normal as visualized. Skeletal structures: The skeletal structures are osteopenic. There is moderate lumbosacral spondylosi s and scoliosis. No lytic or blastic lesions are seen. IMPRESSION: 1. Suboptimal examination without IV contrast. 2. Mild colonic diverticulosis with evidence of acute sigmoid diverticulitis. 3. Intraperitoneal free air indicates perforation. 4. No organized fluid collection is seen on this unenhanced examination to suggest abscess. 5. There is asymmetric cortical atrophy of the right kidney as compared to the left. 6. Right-sided nephrolithiasis. 7. Additional findings as above. ACT 112: Negative or not required by law. Electronically signed by: Markus Mcwilliams M.D. 06/15/2019 11:27 AM
[2019-06-15] MEDS ORDERED: PIPERACILLIN/TAZOBACTAM 4.5 GM/120 ML BAG IV ONE (11:35)
[2019-06-15] MEDS ORDERED: PIPERACILL/TAZOBAC CONSULT ACTIVE PRN ×2 (11:35→13:37)
--- NOTE | 2019-06-15 12:17 | History & Physical Report ---
Date of Service June 15, 2019 Assessment & Plan (1) Perforation of sigmoid colon due to diverticulitis: 58 yr old woman with sigmoid diverticulitis and evidence of perforation with small foci of air under diaphragm. Clinically, she does not manifest an acute abdomen but is tender with guarding in the area of the sigmoid colon. She has a normal WBC count and is afebrile. We discussed options at this point - proceeding straight to surgery for sigmoid colectomy and ostomy with subsequent operation in 3-6 months to reverse the ostomy vs a trial of antibiotics/ bowel rest to see if this improves conservatively. Understands she is at a higher risk for failure of antibiotics and needing definitive surgical intervention. However, overall, she does look stable with an exam that is not suggestive of acute abdomen and the foci of air are very small. Plan of trial of IV antibiotics, bowel rest followed by colonoscopy in 1 month (if improves) was discussed and she would like to try this method first. Will check cbc daily, hydrate with IVF (as labs show evidence of dehydration), follow clinical exam closely. Present on Admission?: Yes History of Present Illness Chief Complaint: abdominal pain Primary Care Provider: Mathew Montelongo MD 58 yr old woman presents with first episode of abdominal pain beginning on Sunday. Pain was generalized, located in band across lower abdomen but also radiating up and down. Quite severe - was unable to work on and Sunday. [place] better Sunday and this morning until about 6:30 am, when she had a bowel movement. Pain recurred, 10/10 in intensity, radiated across abdomen, worse with movement, worse with deep breath/ cough. Sharp/ stabbing/ dull/ aching - constant and without relief. [place] chilled and low grade fever. Came to ER and CT scan showed diverticulitis of sigmoid colon with foci of intraperitoneal free air. Currently, she is sitting up, pain is better - down to 5-6/10 with morphine. Fam hx of diverticulitis in maternal grandmother. No family history of colon cancer. She has never undergone a colonoscopy. Allergies Allergy/AdvReac Type Severity Reaction Status Date / Time apple Allergy Severe SWELLING Verified 06/15/19 08:56 fish oil Allergy Severe SWELLING Verified 06/15/19 08:56 AND ASTHMA nut - unspecified Allergy Severe SWELLING Verified 06/15/19 08:56 AND ASTHMA [id number] Reductase Allergy Severe MUSCLE Verified 02/02/20 08:56 Inhibitor ACHES Sulfa (Sulfonamide Allergy Severe SWELLING Verified 06/15/19 08:56 Antibiotics) AND ASTHMA Home Medications Home Medications Medication Instructions Recorded Confirmed Type carvedilol 12.5 mg tablet 12.5 mg PO BID 01/08/19 06/15/19 History docusate sodium 100 mg capsule 100 mg PO BID PRN #60 cap 01/08/19 06/15/19 History epinephrine 0.3 mg/0.3 mL 0.3 mg IM UD PRN #1 ea 01/08/19 06/15/19 History injection, auto-injector fexofenadine 180 mg tablet 180 mg PO QAM tab 01/08/19 06/15/19 History losartan 50 mg tablet 50 mg PO QAM #90 tab 01/08/19 06/15/19 History prednisolone acetate 1 % eye 1 drops OP QAM ml 01/08/19 06/15/19 History drops,suspension psyllium husk 0.52 gram capsule 2.08 gm PO QAM cap 01/08/19 06/15/19 History triamterene 37.5 1 tab PO QAM #45 tab 01/08/19 06/15/19 History mg-hydrochlorothiazide 25 mg tablet albuterol sulfate 90 mcg/actuation 1 - 2 puffs INHALATION Q4H PRN #8 02/18/19 06/15/19 Rx aerosol inhaler gm azelastine 137 mcg (0.1 %) nasal 2 sprays INTRANASAL BID #30 ml 05/20/19 06/15/19 Rx spray aerosol atorvastatin 10 mg PO Q5D 06/15/19 06/15/19 History calcium polycarbophil [Fiber-Tabs] 1,875 mg PO QAM 06/15/19 06/15/19 History montelukast 10 mg PO PM 06/15/19 06/15/19 History Past Med/Surg History Medical History Aortic stenosis, mild (Chronic) Asthma (Chronic) Bicuspid aortic valve (Chronic) History of cardiomyopathy History of tenosynovitis Hyperlipidemia (Chronic) Hypertension (Chronic) IBS (irritable bowel syndrome) (Chronic) Lumbar radiculopathy (Chronic) Surgical History H/O eye surgery Status post corneal transplant Family History Father Hodgkins disease Social History Preferred Language: Yoruba Communication Ability: Effective Visual Impairment: No Limitations Hearing Ability: Normal marital status: Single Feels Safe at Home: Yes Smoking Status: Never smoker Hx Alcohol Use: No Hx Substance Use: No Seatbelt Use: always Review of Systems Review of Systems: All systems reviewed & are unremarkable except as noted in HPI & below Cardiovascular: Additional Comments: followed by Dr. Abbasi, cardiomyopathy 15 yrs ago. states she has been stable since Physical Exam Constitutional: WD/WN, vitals as above Eyes: PERRL, conjunctivae normal, anicteric sclerae ENMT: external ear and nose normal, oropharynx normal Neck: trachea midline, no thyromegaly Respiratory: normal respiratory effort, lungs clear to auscultation Cardiovascular: RRR, no murmur, no edema Gastrointestinal (Abdomen): Inspection/Auscultation: abdomen normal to inspection and normal bowel sounds; abdomen not distended Percussion/Palpation: + abdomen tender (left upper and lower abdomen with mild guarding) and abdomen soft Musculoskeletal: no cyanosis or clubbing, extremities motor strength 5/5 Neurologic: moves all extremities; no focal motor deficits Psychiatric: A+Ox3, euthymic affect Results & Data Vital Signs (Past 12 Hours) Vital Signs Temp Pulse Resp BP Pulse Ox 06/15/19 11:40 117 H 27 H 95 06/15/19 11:30 113 H 19 95 06/15/19 11:20 115 H 16 95 06/15/19 11:10 113 H 27 H 95 06/15/19 11:01 114 H 19 97 06/15/19 11:00 113 H 25 H 127/85 73 L 06/15/19 10:56 114 H 20 134/85 06/15/19 10:55 112 H 27 H 06/15/19 10:40 106 H 24 06/15/19 10:31 105 H 22 06/15/19 10:30 105 H 25 H 126/79 06/15/19 10:20 106 H 27 H 06/15/19 10:10 108 H 20 06/15/19 10:01 110 H 20 95 06/15/19 10:00 105 H 19 128/99 95 06/15/19 09:47 101 H 26 H 96 06/15/19 09:35 100 H 26 H 136/81 93 06/15/19 08:19 36.9 C 101 H 20 127/83 93 Laboratory Results 06/15/19 06/15/19 06/15/19 Range/Units 10:10 09:10 09:10 WBC 6.10 Cancelled RBC 3.20 L Cancelled Hgb 10.1 L Cancelled Hct 28.2 L Cancelled MCV 88.1 Cancelled MCH 31.6 Cancelled MCHC 35.8 Cancelled RDW Std Deviation 40.8 Cancelled RDW Coeff of Kalina 12.6 Cancelled Plt Count 272 Cancelled MPV 8.0 Cancelled Immature Gran % (Auto) 0.2 Cancelled Neut % (Auto) 85.7 Cancelled Lymph % (Auto) 7.5 Cancelled [place] % (Auto) 5.6 Cancelled Eos % (Auto) 0.8 Cancelled Baso % (Auto) 0.2 Cancelled Immature Gran # (Auto) 0.01 Cancelled Neut # (Auto) 5.23 Cancelled Lymph # (Auto) 0.46 L Cancelled [place] # (Auto) 0.34 Cancelled Eos # (Auto) 0.05 Cancelled Baso # (Auto) 0.01 Cancelled Absolute Nucleated RBC Cancelled Nucleated RBC % (auto) Cancelled Neutrophils % (Manual) Cancelled Band Neutrophils % Cancelled Lymphocytes % (Manual) Cancelled Prolymphocyte % Cancelled Reactive Lymphs % (Man) Cancelled Monocytes % (Manual) Cancelled Eosinophils % (Manual) Cancelled Basophils % (Manual) Cancelled Metamyelocytes % (Man) Cancelled Myelocytes % (Man) Cancelled Promyelocytes % (Man) Cancelled Blast Cells % (Manual) Cancelled Plasma Cell % (Manual) Cancelled Other Cells % Cancelled Nucleated RBC % Cancelled Neutrophils # (Manual) Cancelled Band Neutrophils # Cancelled Total Absolute Neuts Cancelled Lymphocytes # (Manual) Cancelled Prolymphocyte # Cancelled Reactive Lymphs # Cancelled Total Abs Lymphocytes Cancelled Monocytes # (Manual) Cancelled Eosinophils # (Manual) Cancelled Basophils # (Manual) Cancelled Metamyelocytes # (Man) Cancelled Myelocytes # (Manual) Cancelled Promyelocytes # (Man) Cancelled Blast Cells # (Man) Cancelled Plasma Cell # (Manual) Cancelled Other Cells # Cancelled Nucleated RBCs # (Man) Cancelled Hypersegmented Neuts Cancelled Hyposegmented Neuts Cancelled Hypogranular Neuts Cancelled Large Granular Lymphs Cancelled # Lrg Granular Lymphs Cancelled Hairy Cells Cancelled Smudge Cells Cancelled Toxic Granulation Cancelled Toxic Vacuolation Cancelled Dohle Bodies Cancelled [place] Rods Cancelled Platelet Estimate Cancelled Hypogranular Platelets Cancelled Clumped Platelets Cancelled Giant Platelets Cancelled Platelet Satelliting Cancelled RBC Morphology Cancelled Polychromasia Cancelled Hypochromasia Cancelled Poikilocytosis Cancelled Basophilic Stippling Cancelled Anisocytosis Cancelled Microcytosis Cancelled Macrocytosis Cancelled Spherocytes Cancelled Pappenheimer Bodies Cancelled Sickle Cells Cancelled Target Cells Cancelled Tear Drop Cells Cancelled Ovalocytes Cancelled Stomatocytes Cancelled [place]an[place] Bodies Cancelled Echinocytes Cancelled Acanthocytes (Spur) Cancelled Rouleaux Cancelled RBC Agglutinates Cancelled Schistocytes Cancelled RBC Morph Comment Cancelled [place] Cell Cancelled Sodium 132 L (136-145) mmol/L Potassium 3.3 L (3.5-5.1) mmol/L Chloride 96 L (98-107) mmol/L Carbon Dioxide 25 (21-32) mmol/L Anion Gap 11.0 (3-11) BUN 18 (7-18) mg/dl Creatinine 1.90 H (0.6-1.2) mg/dl Est Cr Clr Drug Dosing 28.3 ml/min Est GFR ( Amer) 33.1 Est GFR (Non-Af Amer) 28.6 BUN/Creatinine Ratio 9.5 L (10-20) Glucose 110 H (70-99) mg/dl Calcium 9.8 (8.5-10.1) mg/dl Total Bilirubin 0.7 (0.2-1) mg/dl AST 27 (15-37) U/L ALT 29 (12-78) U/L Alkaline Phosphatase 112 (45-117) U/L Total Protein 9.0 H (6.4-8.2) gm/dl Albumin 3.9 (3.4-5.0) gm/dl Globulin 5.0 H (2.5-4.0) gm/dl Albumin/Globulin Ratio 0.8 L (0.9-2) Lipase 131 (73-393) U/L Specimen Hemolysis Diagnostic Findings CT scan abd/ pelvis personally reviewed. There are small foci of intraperitoneal free air around the colon and under the diaphragm. FINDINGS: Lung bases: The heart is normal in size and there is a small pericardial effusion. The coronary arteries are densely calcified. The lung bases are clear noting bibasilar scarring/atelectasis. A small to moderate hiatal hernia is noted. Liver: The unenhanced liver is normal in size, contour, and attenuation. There is no intrahepatic biliary ductal dilatation. Gallbladder: Unremarkable. Spleen: Normal in size and attenuation. Pancreas: The unenhanced pancreas is mildly atrophic and grossly unremarkable. Adrenal glands: Unremarkable. Kidneys: There is asymmetric cortical atrophy of the right kidney as compared to left. No hydronephrosis is seen. There are least 2 small nonobstructing right renal calculi. No left renal calculi are seen. There is no evidence of contour deforming renal mass lesion. Abdominal vasculature: The abdominal aorta is normal in course and caliber noting advanced atherosclerotic calcification. Bowel: There is no bowel obstruction. There is mild colonic diverticulosis. There is significant wall thickening with pericolonic infiltration and fluid seen involving the sigmoid colon. This is consistent with acute diverticulitis. No organized fluid collection is seen on this unenhanced examination to suggest abscess. The appendix is normal as visualized. Peritoneum: There are numerous foci of intraperitoneal free air identified, greatest below the diaphragm. There is trace free fluid in the pelvis. Lymphadenopathy: None. Pelvic viscera: The bladder, uterus, and adnexa are normal as visualized. Skeletal structures: The skeletal structures are osteopenic. There is moderate lumbosacral spondylosis and scoliosis. No lytic or blastic lesions are seen.
[2019-06-15] MEDS ORDERED: ALBUTEROL HFA 8 GM INHALER INH PRN (13:37)
[2019-06-15] MEDS ORDERED: MoRPHine SULFATE 4 MG/ML 1 ML CARP\\VIAL IV PRN (13:37)
[2019-06-15] MEDS ORDERED: NON-FORMULARY MEDICATION (Azelastine 2 SPRAYS) INTNAS SCH (13:37)
[2019-06-15] MEDS ORDERED: MoRPHine SULFATE 2 MG/ML CARP IV PRN (13:37)
[2019-06-15] MEDS ORDERED: DOCUSATE SODIUM 100 MG CAP PO PRN (13:37)
[2019-06-15] MEDS ORDERED: EPINEPHRINE ADULT AUTO-INJECT 0.3 MG SYR IM PRN (13:37)
[2019-06-15] MEDS ORDERED: DiphenhydrAMINE HCL 50 MG/ML VIAL IV PRN (13:37)
[2019-06-15 13:51] LABS: Appearance Urine Clear (Clear); Bacteria Urine Automated Negative (Negative); Bilirubin Urine Negative (Negative); Blood Urine Trace (Negative); Color Urine Yellow; Glucose Urine UA Negative (Negative); Ketones Urine 1+ (Negative); Leukocyte Esterase Urine Trace (Negative); Nitrite Urine Negative (Negative); Protein Urine Trace (Negative); RBC Urine Automated 0-4 /hpf (0-4); Specific Gravity Urine 1.015 (1.000-1.030); Urobilinogen Urine Negative (Negative); pH Urine 5.5 (4.5-7.5)
[2019-06-15] MEDS ORDERED: carvediloL 12.5 MG TAB PO SCH (14:00)
[2019-06-15 14:25] LABS: BUN Creatinine Ratio 10.5 (10-20); Calcium 9.1 mg/dl (8.5-10.1); Creatinine Clr Calc Pharmacy 31.6 ml/min; Est GFR (African American) 37.9; Est GFR (Non-African American) 32.7; Potassium 3.1 mmol/L (3.5-5.1)
[2019-06-15] MEDS: LACTATED RINGER'S 1,000 ML IV SCH ×2 (14:53→23:24)
[2019-06-15] MEDS: FEXOFENADINE HCL 180 MG TAB PO SCH (14:55)
[2019-06-15 14:56] LABS: Basophils # (auto) 0.01 K/uL (0-0.2); Basophils % (auto) 0.1 %; Eosinophils # (auto) 0.01 K/uL (0-0.5); Eosinophils % (auto) 0.1 %; Hematocrit (blood only) 42.1 % (37-47); Hemoglobin 15.1 g/dL (12.0-16.0); Immature Granulocytes # (auto) 0.02 K/uL (0.00-0.02); Immature Granulocytes % (auto) 0.2 %; Lymphocytes # (auto) 0.48 K/uL (1.2-3.4); Lymphocytes % (auto) 4.4 %; Mean Corpuscular Hemoglobin 31.9 pg (25-34); Mean Corpuscular Hgb Conc 35.9 g/dL (32-36); Mean Corpuscular Volume 88.8 fL (80-100); Mean Platelet Volume 8.7 fL (7.4-10.4); Monocytes # (auto) 0.51 K/uL (0.11-0.59); Monocytes % (auto) 4.7 %; Neutrophils # (auto) 9.87 K/uL (1.4-6.5); Neutrophils % (auto) 90.5 %; Platelet Count 369 K/uL (130-400); RDW Coefficient of Variation 12.7 % (11.5-14.5); RDW Standard Deviation 41.3 fL (36.4-46.3); Red Blood Count 4.74 M/uL (4.2-5.4)
[2019-06-15] MEDS: TRIAMTERENE/HCTZ 37.5/25MG TAB PO SCH (15:43)
[2019-06-15] MEDS: LOSARTAN POTASSIUM 50 MG TAB PO SCH (15:43)
[2019-06-15] MEDS: POTASSIUM CHLORIDE / WTR 10 MEQ/100 ML PLCT IV SCH ×3 (16:10→19:45)
[2019-06-15] MEDS: PIPERACILLIN/TAZOBACTAM 3.375 GM in DEXTROSE 5% 100 ML IV SCH ×2 (16:10→23:24)
[2019-06-15] MEDS: metroNIDAZOLE 500 MG/100 ML BAG IV SCH ×2 (16:11→23:25)
[2019-06-15] MEDS: MoRPHine SULFATE 2 MG/ML CARP IV PRN (19:57)
[2019-06-15] MEDS ORDERED: Nursing to Pharmacy Communication ONE (20:08)
[2019-06-15] MEDS: MONTELUKAST SODIUM 10 MG TABLET PO SCH (21:17)
[2019-06-16] MEDS: MoRPHine SULFATE 2 MG/ML CARP IV PRN (02:37)
[2019-06-16 05:42] LABS: BUN Creatinine Ratio 11.9 (10-20); Calcium 8.5 mg/dl (8.5-10.1); Creatinine Clr Calc Pharmacy 29.5 ml/min; Est GFR (African American) 34.6; Est GFR (Non-African American) 29.9; Potassium 3.3 mmol/L (3.5-5.1)
[2019-06-16] MEDS: LACTATED RINGER'S 1,000 ML IV SCH ×3 (05:46→23:32)
[2019-06-16] MEDS: FEXOFENADINE HCL 180 MG TAB PO SCH (05:46)
[2019-06-16] MEDS: carvediloL 12.5 MG TAB PO SCH ×2 (05:46→18:12)
[2019-06-16 05:49] LABS: Basophils # (auto) 0.01 K/uL (0-0.2); Basophils % (auto) 0.1 %; Eosinophils # (auto) 0.06 K/uL (0-0.5); Eosinophils % (auto) 0.6 %; Hematocrit (blood only) 33.3 % (37-47); Hemoglobin 11.8 g/dL (12.0-16.0); Immature Granulocytes # (auto) 0.02 K/uL (0.00-0.02); Immature Granulocytes % (auto) 0.2 %; Lymphocytes % (auto) 13.1 %; Mean Corpuscular Hemoglobin 31.6 pg (25-34); Mean Corpuscular Hgb Conc 35.4 g/dL (32-36); Mean Platelet Volume 8.4 fL (7.4-10.4); Monocytes % (auto) 7.5 %; Neutrophils # (auto) 8.39 K/uL (1.4-6.5); Neutrophils % (auto) 78.5 %; Platelet Count 309 K/uL (130-400); RDW Coefficient of Variation 12.9 % (11.5-14.5); RDW Standard Deviation 41.4 fL (36.4-46.3); Red Blood Count 3.74 M/uL (4.2-5.4); White Blood Count 10.68 K/uL (4.8-10.8)
[2019-06-16] MEDS: LOSARTAN POTASSIUM 50 MG TAB PO SCH (08:48)
[2019-06-16] MEDS: TRIAMTERENE/HCTZ 37.5/25MG TAB PO SCH (08:49)
[2019-06-16] MEDS: CALCIUM POLYCARBOPHIL 625MG TAB PO SCH (08:49)
[2019-06-16] MEDS: prednisoLONE acetate 1% OP SUSP 5 ML BTL OPR SCH (08:50)
[2019-06-16] MEDS: metroNIDAZOLE 500 MG/100 ML BAG IV SCH ×3 (08:53→23:32)
[2019-06-16] MEDS: POTASSIUM CHLORIDE / WTR 10 MEQ/100 ML PLCT IV SCH ×2 (08:54→13:24)
[2019-06-16] MEDS: PIPERACILLIN/TAZOBACTAM 3.375 GM in DEXTROSE 5% 100 ML IV SCH ×3 (08:54→23:32)
--- NOTE | 2019-06-16 11:23 | Surgery Progress Note ---
Date of Service June 16, 2019 Assessment & Plan (1) Perforation of sigmoid colon due to diverticulitis: 58 yr old woman with sigmoid diverticulitis and evidence of perforation with small foci of air under diaphragm. - tmax 06/15/19 of 37.8, afebrile last shift and this am - minimal abdominal pain - passing flatus - no leukocytosis - Abdomen soft, nondistended, nontender Hypokalemia 3.3 this am after 30 meq IV yesterday Plan: Will continue conservative treatment with IV fluids, pain management prn, IV Zofran prn, and bowel rest. Given free air would like for her to continue strict NPO for bowel rest. Continue IV Zosyn and flagyl. Will need outpatient colonoscopy 6-8 weeks replace potassium with 20 meq IV potassium 12:00 Unable to tolerate IV potassium Will hold off for now recheck am labs may need oral potassium tomorrow 3:30 pm Saw pateint with Dr. Graff no changes continue treatment above keep NPO, IV Abx Dr. Graff has seen pt, agrees with above Subjective feeling 110% better today minimal abdominal pain passing small amounts of flatus, no bowel movement no nausea or vomiting had to get two new IV sites Physical Exam Constitutional: WD/WN, vitals as above no acute distress Respiratory: normal respiratory effort; no respiratory distress Gastrointestinal (Abdomen): Inspection/Auscultation: abdomen normal to inspection; abdomen not distended and + abnormal bowel sounds Percussion/Palpation: abdomen soft; abdomen nontender, no guarding and abdomen not rigid Skin: no rashes, warm and dry Results & Data Vital Signs (Past 12 Hours) Vital Signs Temp Pulse Pulse Resp BP Pulse Ox 06/16/19 07:45 36.6 C 98 H 16 115/76 98 06/16/19 05:44 103 H 114/67 06/16/19 01:01 96 H Laboratory Results 06/16/19 06/16/19 06/16/19 Range/Units 05:02 05:02 05:02 WBC 10.68 (4.8-10.8) K/uL RBC 3.74 L (4.2-5.4) M/uL Hgb 11.8 L D (12.0-16.0) g/dL Hct 33.3 L (37-47) % MCV 89.0 (80-100) fL MCH 31.6 (25-34) pg MCHC 35.4 (32-36) g/dL RDW Std Deviation 41.4 (36.4-46.3) fL RDW Coeff of Kalina 12.9 (11.5-14.5) % Plt Count 309 (130-400) K/uL MPV 8.4 (7.4-10.4) fL Immature Gran % (Auto) 0.2 % Neut % (Auto) 78.5 % Lymph % (Auto) 13.1 % [place] % (Auto) 7.5 % Eos % (Auto) 0.6 % Baso % (Auto) 0.1 % Immature Gran # (Auto) 0.02 (0.00-0.02) K/uL Neut # (Auto) 8.39 H (1.4-6.5) K/uL Lymph # (Auto) 1.40 (1.2-3.4) K/uL [place] # (Auto) 0.80 H (0.11-0.59) K/uL Eos # (Auto) 0.06 (0-0.5) K/uL Baso # (Auto) 0.01 (0-0.2) K/uL Sodium 136 (136-145) mmol/L Potassium 3.3 L (3.5-5.1) mmol/L Chloride 103 (98-107) mmol/L Carbon Dioxide 23 (21-32) mmol/L Anion Gap 10.0 (3-11) BUN 22 H (7-18) mg/dl Creatinine 1.83 H (0.6-1.2) mg/dl Est Cr Clr Drug Dosing 29.5 ml/min Est GFR ( Amer) 34.6 Est GFR (Non-Af Amer) 29.9 BUN/Creatinine Ratio 11.9 (10-20) Glucose 98 (70-99) mg/dl Calcium 8.5 (8.5-10.1) mg/dl Urine Color Urine Appearance (Clear) Urine pH (4.5-7.5) Ur Specific [place] (1.000-1.030) Urine Protein (Negative) Urine Glucose (UA) (Negative) Urine Ketones (Negative) Urine Blood (Negative) Urine Nitrite (Negative) Urine Bilirubin (Negative) Urine Urobilinogen (Negative) Ur Leukocyte Esterase (Negative) Urine WBC (Auto) (0-5) /hpf Urine RBC (Auto) (0-4) /hpf U Hyaline Cast (Auto) (0-5) /lpf U Epithel Cells (Auto) (0-5) /lpf Urine Bacteria (Auto) (Negative) Hepatitis C Ab Screen Neg (Neg) 06/15/19 06/15/19 06/15/19 Range/Units 13:55 13:55 13:35 WBC 10.90 H (4.8-10.8) K/uL RBC 4.74 (4.2-5.4) M/uL Hgb 15.1 D (12.0-16.0) g/dL Hct 42.1 (37-47) % MCV 88.8 (80-100) fL MCH 31.9 (25-34) pg MCHC 35.9 (32-36) g/dL RDW Std Deviation 41.3 (36.4-46.3) fL RDW Coeff of Kalina 12.7 (11.5-14.5) % Plt Count 369 (130-400) K/uL MPV 8.7 (7.4-10.4) fL Immature Gran % (Auto) 0.2 % Neut % (Auto) 90.5 % Lymph % (Auto) 4.4 % [place] % (Auto) 4.7 % Eos % (Auto) 0.1 % Baso % (Auto) 0.1 % Immature Gran # (Auto) 0.02 (0.00-0.02) K/uL Neut # (Auto) 9.87 H (1.4-6.5) K/uL Lymph # (Auto) 0.48 L (1.2-3.4) K/uL [place] # (Auto) 0.51 (0.11-0.59) K/uL Eos # (Auto) 0.01 (0-0.5) K/uL Baso # (Auto) 0.01 (0-0.2) K/uL Sodium 133 L (136-145) mmol/L Potassium 3.1 L (3.5-5.1) mmol/L Chloride 98 (98-107) mmol/L Carbon Dioxide 24 (21-32) mmol/L Anion Gap 11.0 (3-11) BUN 18 (7-18) mg/dl Creatinine 1.70 H (0.6-1.2) mg/dl Est Cr Clr Drug Dosing 31.6 ml/min Est GFR ( Amer) 37.9 Est GFR (Non-Af Amer) 32.7 BUN/Creatinine Ratio 10.5 (10-20) Glucose 120 H (70-99) mg/dl Calcium 9.1 (8.5-10.1) mg/dl Urine Color Yellow Urine Appearance Clear (Clear) Urine pH 5.5 (4.5-7.5) Ur Specific [place] 1.015 (1.000-1.030) Urine Protein Trace H (Negative) Urine Glucose (UA) Negative (Negative) Urine Ketones 1+ H (Negative) Urine Blood Trace H (Negative) Urine Nitrite Negative (Negative) Urine Bilirubin Negative (Negative) Urine Urobilinogen Negative (Negative) Ur Leukocyte Esterase Trace H (Negative) Urine WBC (Auto) 1-5 (0-5) /hpf Urine RBC (Auto) 0-4 (0-4) /hpf U Hyaline Cast (Auto) 5-10 H (0-5) /lpf U Epithel Cells (Auto) 10-20 H (0-5) /lpf Urine Bacteria (Auto) Negative (Negative) Hepatitis C Ab Screen (Neg)
[2019-06-16] MEDS: MONTELUKAST SODIUM 10 MG TABLET PO SCH (20:53)
[2019-06-17] MEDS: ONDANSETRON INJ 2 MG/ML 2 ML VIAL IV PRN ×2 (01:52→22:20)
[2019-06-17] MEDS: MoRPHine SULFATE 2 MG/ML CARP IV PRN (01:52)
[2019-06-17] MEDS: LACTATED RINGER'S 1,000 ML IV SCH ×4 (05:28→21:31)
[2019-06-17 05:42] LABS: Basophils # (auto) 0.04 K/uL (0-0.2); Basophils % (auto) 0.4 %; Eosinophils # (auto) 0.17 K/uL (0-0.5); Eosinophils % (auto) 1.5 %; Hematocrit (blood only) 34.3 % (37-47); Immature Granulocytes # (auto) 0.03 K/uL (0.00-0.02); Immature Granulocytes % (auto) 0.3 %; Lymphocytes # (auto) 1.77 K/uL (1.2-3.4); Lymphocytes % (auto) 15.9 %; Mean Corpuscular Hemoglobin 31.3 pg (25-34); Mean Corpuscular Volume 89.3 fL (80-100); Mean Platelet Volume 8.6 fL (7.4-10.4); Monocytes # (auto) 0.74 K/uL (0.11-0.59); Monocytes % (auto) 6.6 %; Neutrophils # (auto) 8.41 K/uL (1.4-6.5); Neutrophils % (auto) 75.3 %; Platelet Count 339 K/uL (130-400); RDW Standard Deviation 42.3 fL (36.4-46.3); Red Blood Count 3.84 M/uL (4.2-5.4); White Blood Count 11.16 K/uL (4.8-10.8)
[2019-06-17] MEDS: FEXOFENADINE HCL 180 MG TAB PO SCH (06:08)
[2019-06-17] MEDS: carvediloL 12.5 MG TAB PO SCH ×2 (06:09→18:43)
[2019-06-17 06:20] LABS: BUN Creatinine Ratio 12.7 (10-20); Calcium 8.7 mg/dl (8.5-10.1); Creatinine Clr Calc Pharmacy 40.1 ml/min; Est GFR (Non-African American) 43.2; Potassium 3.1 mmol/L (3.5-5.1)
[2019-06-17] MEDS: PIPERACILLIN/TAZOBACTAM 3.375 GM in DEXTROSE 5% 100 ML IV SCH ×2 (07:38→16:18)
[2019-06-17] MEDS: metroNIDAZOLE 500 MG/100 ML BAG IV SCH ×2 (07:40→16:19)
[2019-06-17] MEDS ORDERED: POTASSIUM CHLORIDE 20 MEQ TABCR PO STA (08:21)
[2019-06-17] MEDS: CALCIUM POLYCARBOPHIL 625MG TAB PO SCH (08:52)
[2019-06-17] MEDS: LOSARTAN POTASSIUM 50 MG TAB PO SCH (08:53)
[2019-06-17] MEDS: prednisoLONE acetate 1% OP SUSP 5 ML BTL OPR SCH (08:53)
[2019-06-17] MEDS: TRIAMTERENE/HCTZ 37.5/25MG TAB PO SCH (08:53)
[2019-06-17] MEDS ORDERED: ATORVASTATIN 10 MG TAB PO SCH (09:00)
--- NOTE | 2019-06-17 13:05 | Surgery Progress Note ---
Date of Service June 17, 2019 Assessment & Plan (1) Perforation of sigmoid colon due to diverticulitis: 58 yr old woman with sigmoid diverticulitis and evidence of perforation with small foci of air under diaphragm. - afebrile - mild leukocytosis (stable) - no abdominal pain - return of bowel function - Abdomen soft, nondistended, nontender Hypokalemia 3.1 this am (unable to tolerate IV Potassium yesterday) Plan: Will continue conservative treatment with IV fluids, pain management prn, IV Zofran prn, IV Antibiotics Zosyn and flagyl. start clear liquids today, advised to take slowly Will need outpatient colonoscopy 6-8 weeks replace potassium with 40 meq PO potassium chloride repeat am labs Dr. Graff was present during my examination and agrees with above Subjective feeling great today had multiple loose bowel movements since last night no n/v some pain after bowel movements but no lingering abdominal pain no fever or chills Physical Exam Constitutional: WD/WN, vitals as above no acute distress Respiratory: normal respiratory effort; no respiratory distress Gastrointestinal (Abdomen): Inspection/Auscultation: abdomen normal to inspection and normal bowel sounds; abdomen not distended Percussion/Palpation: abdomen soft; abdomen nontender, no guarding and abdomen not rigid Skin: no rashes, warm and dry Psychiatric: A+Ox3, euthymic affect Results & Data Vital Signs (Past 12 Hours) Vital Signs Temp Pulse Pulse Resp BP Pulse Ox 06/17/19 10:47 36.8 C 89 16 144/77 H 99 06/17/19 07:00 36.7 C 95 H 16 119/76 97 06/17/19 06:07 104 H 121/83 Laboratory Results 06/17/19 06/17/19 Range/Units 05:20 05:20 WBC 11.16 H (4.8-10.8) K/uL RBC 3.84 L (4.2-5.4) M/uL Hgb 12.0 (12.0-16.0) g/dL Hct 34.3 L (37-47) % MCV 89.3 (80-100) fL MCH 31.3 (25-34) pg MCHC 35.0 (32-36) g/dL RDW Std Deviation 42.3 (36.4-46.3) fL RDW Coeff of Kalina 13.0 (11.5-14.5) % Plt Count 339 (130-400) K/uL MPV 8.6 (7.4-10.4) fL Immature Gran % (Auto) 0.3 % Neut % (Auto) 75.3 % Lymph % (Auto) 15.9 % [place] % (Auto) 6.6 % Eos % (Auto) 1.5 % Baso % (Auto) 0.4 % Immature Gran # (Auto) 0.03 H (0.00-0.02) K/uL Neut # (Auto) 8.41 H (1.4-6.5) K/uL Lymph # (Auto) 1.77 (1.2-3.4) K/uL [place] # (Auto) 0.74 H (0.11-0.59) K/uL Eos # (Auto) 0.17 (0-0.5) K/uL Baso # (Auto) 0.04 (0-0.2) K/uL Sodium 136 (136-145) mmol/L Potassium 3.1 L (3.5-5.1) mmol/L Chloride 104 (98-107) mmol/L Carbon Dioxide 23 (21-32) mmol/L Anion Gap 9.0 (3-11) BUN 17 (7-18) mg/dl Creatinine 1.35 H D (0.6-1.2) mg/dl Est Cr Clr Drug Dosing 40.1 ml/min Est GFR ( Amer) 50.0 Est GFR (Non-Af Amer) 43.2 BUN/Creatinine Ratio 12.7 (10-20) Glucose 80 (70-99) mg/dl Calcium 8.7 (8.5-10.1) mg/dl
[2019-06-17] MEDS: MONTELUKAST SODIUM 10 MG TABLET PO SCH (20:16)
[2019-06-18] MEDS: metroNIDAZOLE 500 MG/100 ML BAG IV SCH ×4 (00:06→23:47)
[2019-06-18] MEDS: PIPERACILLIN/TAZOBACTAM 3.375 GM in DEXTROSE 5% 100 ML IV SCH ×4 (00:06→23:47)
[2019-06-18] MEDS: LACTATED RINGER'S 1,000 ML IV SCH (05:29)
[2019-06-18] MEDS: ONDANSETRON INJ 2 MG/ML 2 ML VIAL IV PRN (05:29)
[2019-06-18 05:47] LABS: Basophils # (auto) 0.05 K/uL (0-0.2); Basophils % (auto) 0.5 %; Eosinophils # (auto) 0.31 K/uL (0-0.5); Eosinophils % (auto) 3.3 %; Hematocrit (blood only) 34.3 % (37-47); Hemoglobin 12.2 g/dL (12.0-16.0); Immature Granulocytes # (auto) 0.02 K/uL (0.00-0.02); Immature Granulocytes % (auto) 0.2 %; Lymphocytes # (auto) 1.61 K/uL (1.2-3.4); Lymphocytes % (auto) 17.3 %; Mean Corpuscular Hemoglobin 31.2 pg (25-34); Mean Corpuscular Hgb Conc 35.6 g/dL (32-36); Mean Corpuscular Volume 87.7 fL (80-100); Mean Platelet Volume 8.3 fL (7.4-10.4); Monocytes # (auto) 0.98 K/uL (0.11-0.59); Monocytes % (auto) 10.6 %; Neutrophils # (auto) 6.31 K/uL (1.4-6.5); Neutrophils % (auto) 68.1 %; Platelet Count 424 K/uL (130-400); RDW Coefficient of Variation 12.9 % (11.5-14.5); RDW Standard Deviation 41.9 fL (36.4-46.3); Red Blood Count 3.91 M/uL (4.2-5.4); White Blood Count 9.28 K/uL (4.8-10.8)
[2019-06-18 06:26] LABS: BUN Creatinine Ratio 8.4 (10-20); Calcium 8.8 mg/dl (8.5-10.1); Creatinine Clr Calc Pharmacy 50.1 ml/min; Est GFR (African American) 65.5; Est GFR (Non-African American) 56.5; Potassium 2.9 mmol/L (3.5-5.1)
[2019-06-18] MEDS: carvediloL 12.5 MG TAB PO SCH ×3 (06:32→19:16)
--- NOTE | 2019-06-18 09:05 | Surgery Progress Note ---
Date of Service June 18, 2019 Assessment & Plan (1) Perforation of sigmoid colon due to diverticulitis: 58 yr old woman with sigmoid diverticulitis and evidence of perforation with small foci of air under diaphragm. - afebrile - leukocytosis resolved - no abdominal pain - + return of bowel function - Abdomen soft, nondistended, nontender Plan: Will continue conservative treatment with IV fluids, pain management prn, IV Zofran prn, IV Antibiotics Zosyn and flagyl. Continue clear liquids today given nausea Will need outpatient colonoscopy 6-8 weeks repeat am labs (2) Hypokalemia: 2.9 today unable to tolerate IV potassium previously Plan: Switch IV fluids to 1/2 NS + 20 KCL at 75 mls/hr 40 MEQ PO now recheck potassium, mag, phos at 1500 may need IV potassium and oral potassium depending on results Discussed with Dr. Graff who has seen patient, agrees with above Subjective +nausea last evening, had rough night no abdominal pain after liquids or with nausea still passing flatus and liquid bowel movements no fevers or chills no vomiting Physical Exam Constitutional: WD/WN, vitals as above not ill appearing Respiratory: normal respiratory effort; no respiratory distress Gastrointestinal (Abdomen): Inspection/Auscultation: abdomen normal to inspection; abdomen not distended Percussion/Palpation: abdomen soft; abdomen nontender, no guarding and abdomen not rigid Skin: no rashes, warm and dry Psychiatric: A+Ox3, euthymic affect Results & Data Vital Signs (Past 12 Hours) Vital Signs Temp Pulse Resp BP Pulse Ox 06/17/19 23:40 36.8 C 92 H 16 147/93 H 97 Laboratory Results 06/18/19 06/18/19 Range/Units 05:19 05:19 WBC 9.28 (4.8-10.8) K/uL RBC 3.91 L (4.2-5.4) M/uL Hgb 12.2 (12.0-16.0) g/dL Hct 34.3 L (37-47) % MCV 87.7 (80-100) fL MCH 31.2 (25-34) pg MCHC 35.6 (32-36) g/dL RDW Std Deviation 41.9 (36.4-46.3) fL RDW Coeff of Kalina 12.9 (11.5-14.5) % Plt Count 424 H (130-400) K/uL MPV 8.3 (7.4-10.4) fL Immature Gran % (Auto) 0.2 % Neut % (Auto) 68.1 % Lymph % (Auto) 17.3 % [place] % (Auto) 10.6 % Eos % (Auto) 3.3 % Baso % (Auto) 0.5 % Immature Gran # (Auto) 0.02 (0.00-0.02) K/uL Neut # (Auto) 6.31 (1.4-6.5) K/uL Lymph # (Auto) 1.61 (1.2-3.4) K/uL [place] # (Auto) 0.98 H (0.11-0.59) K/uL Eos # (Auto) 0.31 (0-0.5) K/uL Baso # (Auto) 0.05 (0-0.2) K/uL Sodium 136 (136-145) mmol/L Potassium 2.9 L (3.5-5.1) mmol/L Chloride 103 (98-107) mmol/L Carbon Dioxide 27 (21-32) mmol/L Anion Gap 6.0 (3-11) BUN 9 D (7-18) mg/dl Creatinine 1.08 (0.6-1.2) mg/dl Est Cr Clr Drug Dosing 50.1 ml/min Est GFR ( Amer) 65.5 Est GFR (Non-Af Amer) 56.5 BUN/Creatinine Ratio 8.4 L (10-20) Glucose 97 (70-99) mg/dl Calcium 8.8 (8.5-10.1) mg/dl
[2019-06-18] MEDS: POTASSIUM CHLORIDE 20 MEQ TABCR PO SCH ×2 (09:25→20:13)
[2019-06-18] MEDS: SODIUM CHLOR 0.45% + 20MEQ KCL 20 MEQ/1,000 ML BAG IV SCH ×2 (09:25→22:24)
[2019-06-18] MEDS: TRIAMTERENE/HCTZ 37.5/25MG TAB PO SCH (09:26)
[2019-06-18] MEDS: LOSARTAN POTASSIUM 50 MG TAB PO SCH (09:26)
[2019-06-18] MEDS: FEXOFENADINE HCL 180 MG TAB PO SCH (09:26)
[2019-06-18] MEDS: prednisoLONE acetate 1% OP SUSP 5 ML BTL OPR SCH (09:27)
[2019-06-18 15:37] LABS: Potassium 3.3 mmol/L (3.5-5.1)
[2019-06-18 16:02] LABS: Magnesium 1.1 mg/dl (1.8-2.4); Phosphorus 1.4 mg/dl (2.5-4.9)
[2019-06-18] MEDS: POT PHOSPHATE MONOBASIC W/ SOD TAB PO SCH ×2 (17:08→20:12)
[2019-06-18] MEDS: MAGNESIUM SULFATE / D5W 1 GM/100 ML BAG IV SCH ×3 (17:09→19:36)
[2019-06-18] MEDS: MONTELUKAST SODIUM 10 MG TABLET PO SCH (20:13)
[2019-06-19] MEDS ORDERED: METOPROLOL TARTRATE 25 MG TAB PO STA (00:55)
[2019-06-19] MEDS ORDERED: SODIUM CHLORIDE 0.65% NA SOLN 45 ML (OCEAN) ONE (05:07)
[2019-06-19] MEDS: carvediloL 12.5 MG TAB PO SCH (05:19)
[2019-06-19 06:19] LABS: Basophils # (auto) 0.04 K/uL (0-0.2); Basophils % (auto) 0.5 %; Eosinophils # (auto) 0.28 K/uL (0-0.5); Eosinophils % (auto) 3.5 %; Hematocrit (blood only) 36.3 % (37-47); Immature Granulocytes # (auto) 0.04 K/uL (0.00-0.02); Immature Granulocytes % (auto) 0.5 %; Lymphocytes # (auto) 1.53 K/uL (1.2-3.4); Mean Corpuscular Hemoglobin 31.3 pg (25-34); Mean Corpuscular Hgb Conc 35.8 g/dL (32-36); Mean Corpuscular Volume 87.5 fL (80-100); Mean Platelet Volume 8.2 fL (7.4-10.4); Monocytes # (auto) 0.93 K/uL (0.11-0.59); Monocytes % (auto) 11.6 %; Neutrophils # (auto) 5.22 K/uL (1.4-6.5); Neutrophils % (auto) 64.9 %; Platelet Count 491 K/uL (130-400); RDW Coefficient of Variation 12.9 % (11.5-14.5); RDW Standard Deviation 41.6 fL (36.4-46.3); Red Blood Count 4.15 M/uL (4.2-5.4); White Blood Count 8.04 K/uL (4.8-10.8)
[2019-06-19 06:48] LABS: BUN Creatinine Ratio 5.2 (10-20); Calcium 8.8 mg/dl (8.5-10.1); Creatinine Clr Calc Pharmacy 62.2 ml/min; Est GFR (African American) 85.1; Est GFR (Non-African American) 73.4; Magnesium 1.6 mg/dl (1.8-2.4); Potassium 3.5 mmol/L (3.5-5.1)
[2019-06-19 06:52] LABS: Phosphorus 2.2 mg/dl (2.5-4.9)
[2019-06-19] MEDS: metroNIDAZOLE 500 MG/100 ML BAG IV SCH (08:27)
[2019-06-19] MEDS: PIPERACILLIN/TAZOBACTAM 3.375 GM in DEXTROSE 5% 100 ML IV SCH (08:28)
[2019-06-19] MEDS: LOSARTAN POTASSIUM 50 MG TAB PO SCH (08:39)
[2019-06-19] MEDS: FEXOFENADINE HCL 180 MG TAB PO SCH (08:39)
[2019-06-19] MEDS: POT PHOSPHATE MONOBASIC W/ SOD TAB PO SCH ×2 (08:41→13:40)
[2019-06-19] MEDS: TRIAMTERENE/HCTZ 37.5/25MG TAB PO SCH (08:41)
[2019-06-19] MEDS: prednisoLONE acetate 1% OP SUSP 5 ML BTL OPR SCH (08:42)
--- NOTE | 2019-06-19 09:01 | Surgery Progress Note ---
Date of Service June 19, 2019 Assessment & Plan (1) Perforation of sigmoid colon due to diverticulitis: 58 yr old woman with sigmoid diverticulitis and evidence of perforation with small foci of air under diaphragm. - afebrile - leukocytosis resolved - no abdominal pain - + return of bowel function - Abdomen soft, nondistended, nontender Plan: Okay for discharge today this afternoon Advance diet to low fiber diet as tolerated at home. Shuttle Inspector has given low fiber recommendations. will need 10 day course of PO Cipro and Flagyl f/u surgical office in 2 weeks f/u pcp in 1 week, will need to f/u with pcp or clinical documentation clerk in regards to blood pressure if continues to be elevated at home will need colonoscopy in 6-8 weeks (2) Hypokalemia: Resolved 3.5 today Hypophosphatemia and hypomagnesia improved today after supplementation (3) Hypertension: BP: 172/112 --> 158/96 after PO Metoprolol 75 mg Likely secondary to her anxiety asymptomatic Plan: Will get her [place] and diuretic this morning and recheck bp stop IV fluids now Needs to follow up with her PCP/clinical documentation clerk if continues to be high at home advised to call PCP/clinical documentation clerk if her BP is over 150 systolic at home Discussed with Dr. Graff who has seen patient, agrees with above Subjective feeling great last night but blood pressure was high this morning and concerned tolerated full liquids last night no abdominal pain still having loose stools and passing gas no fevers Physical Exam Constitutional: WD/WN, vitals as above no acute distress Gastrointestinal (Abdomen): Inspection/Auscultation: abdomen normal to inspection; abdomen not distended Percussion/Palpation: abdomen soft; abdomen nontender, no guarding and abdomen not rigid Skin: no rashes, warm and dry Psychiatric: A+Ox3, euthymic affect Results & Data Vital Signs (Past 12 Hours) Vital Signs Temp Pulse Resp BP Pulse Ox 06/19/19 06:17 158/96 H 06/19/19 05:18 172/112 H 06/18/19 22:55 36.9 C 83 18 169/101 H 98 Laboratory Results 06/19/19 06/19/19 06/18/19 Range/Units 05:50 05:50 15:13 WBC 8.04 (4.8-10.8) K/uL RBC 4.15 L (4.2-5.4) M/uL Hgb 13.0 (12.0-16.0) g/dL Hct 36.3 L (37-47) % MCV 87.5 (80-100) fL MCH 31.3 (25-34) pg MCHC 35.8 (32-36) g/dL RDW Std Deviation 41.6 (36.4-46.3) fL RDW Coeff of Kalina 12.9 (11.5-14.5) % Plt Count 491 H (130-400) K/uL MPV 8.2 (7.4-10.4) fL Immature Gran % (Auto) 0.5 % Neut % (Auto) 64.9 % Lymph % (Auto) 19.0 % [place] % (Auto) 11.6 % Eos % (Auto) 3.5 % Baso % (Auto) 0.5 % Immature Gran # (Auto) 0.04 H (0.00-0.02) K/uL Neut # (Auto) 5.22 (1.4-6.5) K/uL Lymph # (Auto) 1.53 (1.2-3.4) K/uL [place] # (Auto) 0.93 H (0.11-0.59) K/uL Eos # (Auto) 0.28 (0-0.5) K/uL Baso # (Auto) 0.04 (0-0.2) K/uL Sodium 134 L (136-145) mmol/L Potassium 3.5 3.3 L (3.5-5.1) mmol/L Chloride 102 (98-107) mmol/L Carbon Dioxide 23 (21-32) mmol/L Anion Gap 9.0 (3-11) BUN 5 L (7-18) mg/dl Creatinine 0.87 (0.6-1.2) mg/dl Est Cr Clr Drug Dosing 62.2 ml/min Est GFR ( Amer) 85.1 Est GFR (Non-Af Amer) 73.4 BUN/Creatinine Ratio 5.2 L (10-20) Glucose 109 H (70-99) mg/dl Calcium 8.8 (8.5-10.1) mg/dl Phosphorus 2.2 L 1.4 L* (2.5-4.9) mg/dl Magnesium 1.6 L 1.1 L (1.8-2.4) mg/dl
--- NOTE | 2019-06-19 13:55 | Discharge Summary ---
Date of Service June 19, 2019 Admission HPI Per Admitting Provider 58 yr old woman presents with first episode of abdominal pain beginning on Sunday. Pain was generalized, located in band across lower abdomen but also radiating up and down. Quite severe - was unable to work on and Sunday. [place] better Sunday and this morning until about 6:30 am, when she had a bowel movement. Pain recurred, 10/10 in intensity, radiated across abdomen, worse with movement, worse with deep breath/ cough. Sharp/ stabbing/ dull/ aching - constant and without relief. [place] chilled and low grade fever. Came to ER and CT scan showed diverticulitis of sigmoid colon with foci of intraperitoneal free air. Currently, she is sitting up, pain is better - down to 5-6/10 with morphine. Fam hx of diverticulitis in maternal grandmother. No family history of colon cancer. She has never undergone a colonoscopy. Principal Diagnosis Diverticulitis with microperforation Discharge Data Allergies Allergy/AdvReac Type Severity Reaction Status Date / Time apple Allergy Severe SWELLING Verified 06/15/19 08:56 fish oil Allergy Severe SWELLING Verified 06/15/19 08:56 AND ASTHMA nut - unspecified Allergy Severe SWELLING Verified 06/15/19 08:56 AND ASTHMA [id number] Reductase Allergy Severe MUSCLE Verified 06/15/19 08:56 Inhibitor ACHES Sulfa (Sulfonamide Allergy Severe SWELLING Verified 06/15/19 08:56 Antibiotics) AND ASTHMA Ordered Studies 06/15/19 10:10 CT abd pelvis wo con Stat Hospital Course (1) Perforation of sigmoid colon due to diverticulitis: Doreen was admitted to medical/surgical floor for conservative management given evidence of diverticulitis and small foci of pneumoperitoneum. She was started on IV Zosyn and flagyl, IV fluids, IV morphine prn pain management, IV Zofran prn nausea, and continued her home oral medications. She was kept strict npo other than sip of water with oral meds. On HD # 2 diet was advanced to clear liquids and then to full liquids on HD#3. Her leukocytosis improved down to 8K on HD # 4. She was afebrile HD # 2,3, and 4. Clinically she improved each day and had minimal abdominal pain after HD #1. She was discharged home on HD # 4 on oral cipro and flagyl to complete 10 day course, low fiber diet, and f/u in 2 weeks with colonoscopy needed in 6-8 weeks. (2) Hypokalemia: Her potassium was marginally low first few days of her stay however decreased to 2.9 on HD # 3. She was unable to tolerated IV Potassium replacement so she was given oral potassium replacement. HD # 3 she was given 40 meq of potassium bid and IV fluids switched to 1/2 NS + 20 KCL @ 75 mls/hr. Phosphate and magnesium were also low which were replaced with oral and IV orders respectively. HD # 4 she potassium was 3.5. Likely secondary to GI losses with loose stools. (3) Hypertension: Her blood pressure was originally normal but continued to increase to systolic 140's on HD # 3 and systolic 160's and hights of 172 on HD # 4. Her home oral meds were continued throughout her stay. She was given one time dose of oral Metoprolol in in morning of HD # 4. BP: 172/112 --> 158/96 (after PO Metoprolol). She was asymptomatic and likely secondary to IV fluids and her anxiety. Advised to monitor BP at home and if persistently elevated to call her PCP/[facility] office for further treatment recommendations. Total Time Total Time Spent Total Time Spent (In Minutes): 40 Total Time Includes: Examination of the Patient, Discharge Planning, Medication Reconciliation and Other (Educating patient on discharge instructions) Discharge Plan Discharge Items Patient Disposition: Home - Self-Care Reason For Visit: ACUTE DIVERTICULITIS Discharge Diagnosis: Acute diverticulitis with microperforation Activity: Per Instructions section Non-emergency contact: Primary Care Provider and Surgeon Call non-emergency contact if: you have any medication questions, your pain is not controlled, you have a fever and your temperature is above 101 Follow-up/Referrals: ProMathew MD [Primary Care Provider] - 06/24/19 10:00 am (APPT WITH [facility]) Diet: Low Fiber Addtl Attending Provider Instructions: Increase diet to low fiber as tolerated in next few days. Smaller frequent meals recommended over 3 large meals. Recommend low fiber diet for next 6-8 weeks until you have colonoscopy. Can have some fiber foods in moderation. Would avoid raw fruits and vegetables. Follow speeder machine operator recommendations as given. May take Tylenol or Ibuprofen as needed for pain. Take Ibuprofen with food as it can cause stomach upset and irritation. You will be given prescription for antibiotics: Cipro and Flagyl for 10 day course. Take entire course as directed. You will need follow-up with your PCP in 1 week from discharge If your blood pressure continues to be elevated at home please follow-up with your PCP/[facility] for further recommendations. Follow-up with surgical office in 2 weeks. Please call office at [phone] t o make an appointment or if you have any questions. You will need a colonoscopy in 6-8 weeks to further evaluate the colon and for colon cancer screening as you have not had a prior colonoscopy. Pending Studies at Discharge: No Stand-Alone Forms: Call Back Authorization, My [facility] tomoguides, Work/School Release (Inpt), Smoking Cessation Medications and DC Order Prescriptions: New ciprofloxacin HCl [Cipro] 500 mg tablet 500 mg PO BID Qty: 20 RF: 0 metronidazole [Flagyl] 500 mg tablet 500 mg PO TID Qty: 30 RF: 0 Continued albuterol sulfate 90 mcg/actuation HFA aerosol inhaler 1 - 2 puffs inhalation Q4H PRN (Reason: shortness of breath) Qty: 8 RF: 3 azelastine 137 mcg (0.1 %) aerosol,spray 2 sprays intranasal BID Qty: 30 RF: 3 carvedilol [Coreg] 12.5 mg tablet 12.5 mg PO BID RF: 0 losartan 50 mg tablet 50 mg PO QAM Qty: 90 RF: 0 epinephrine 0.3 mg/0.3 mL auto-injector 0.3 mg IM UD PRN (Reason: anaphylaxis) Qty: 1 RF: 0 fexofenadine 180 mg tablet 180 mg PO QAM RF: 0 triamterene-hydrochlorothiazid 37.5-25 mg tablet 1 tab PO QAM Qty: 45 RF: 0 prednisolone acetate 1 % drops,suspension 1 drops OP QAM RF: 0 montelukast 10 mg tablet 10 mg PO PM RF: 0 atorvastatin 10 mg tablet 10 mg PO Q5D RF: 0 Discontinued psyllium husk 0.52 gram capsule 2.08 gm PO QAM RF: 0 docusate sodium 100 mg capsule 100 mg PO BID PRN (Reason: constipation) Qty: 60 RF: 0 calcium polycarbophil [Fiber-Tabs] 625 mg Tablet 1,875 mg PO QAM RF: 0 Discharge Orders: Discharge Order (Routine); Ordered 06/19/19 Ordered By: Arleth Montoya/Other Patient Handouts: Diet Low Residue, Diverticulitis Dc Admission Data Admit Date/Time: 06/15/19 12:33 Attending Provider: Gina Pacheco Admit Provider: Gina Pacheco Primary Care Provider: Mathew Montelongo Other Interventions: Discharge Summary Assessment (RN) Last Done: 06/19/19 12:30 DC Date/Time DO NOT enter until pt leaves facility: 06/19/19 13:40
== END 2019-06-19 13:40 | disposition home or self-care (01) | DRG 392 ==
LOC: ED 08:16 → 3W 12:33

== ENCOUNTER 2022-04-10 13:59 | Inpatient (IN) ==
--- NOTE | 2022-04-10 19:11 | Emergency Department Note ---
History of Present Illness General Chief complaint: Referred by Doctor Stated complaint: REFERRED BY DOCTOR; ABDOMINAL PAIN Time Seen by Provider: 04/10/22 18:12 Source: patient Mode of arrival: ambulatory Limitations: no limitations History of Present Illness Provider complaint: referred by PCP, abd pain Maximum Pain Intensity: 2 This is a 61-year-old female presents emergency department due to concern for abdominal pain after being referred here by her PCP due to abnormal outpatient labs. Patient presented to her PCP today due to concern for intermittent lower abdominal pain over the last 6 days. She reports some nausea but no vomiting. She states her stools been slightly loose, no black or bloody stools. She denies fevers, chills, URI symptoms. No recent change in medications. PCP sent her for outpatient labs and CT imaging and then promptly called her to come to the ER immediately. Patient was noted on outpatient labs to have a sodium of 118. Patient does have a prior history of hyponatremia, she states she does not know why but states it started after she was placed on a diuretic following her heart attack. She states she drinks a total of 3 L of fluids per day, only 0.5 to 1 L of free water. She denies any current abdominal pain or nausea. She states she does have a slight headache but states she has not had anything to eat or drink since breakfast this morning. She also states that headaches are common for her when her sodium is low. She states her last recollection of her sodium level was in the upper 120s. Home Medications Medication Instructions Recorded Confirmed Type prednisolone acetate 1 % eye 1 drops ophthalmic (eye) QAM 01/08/19 04/10/22 History drops,suspension epinephrine 0.3 mg/0.3 mL 0.3 mg (0.3 mL) IM UD PRN 07/15/19 04/10/22 Rx injection, auto-injector anaphylaxis #1 ea fexofenadine 180 mg tablet 180 mg PO QAM #30 tabs 08/03/20 04/10/22 Rx cholecalciferol (vitamin D3) 50 50 mcg PO DAILY 12/03/20 04/10/22 History mcg (2,000 unit) capsule carvedilol 12.5 mg tablet (Coreg) 12.5 mg PO BID #180 tabs 09/20/21 04/10/22 Rx polyethylene glycol 3350 [Miralax] PO DAILY 09/20/21 04/10/22 History albuterol sulfate 90 mcg/actuation 1 puff inhalation BID shortness of 10/31/21 04/10/22 Rx aerosol inhaler breath #8.5 grams azelastine 137 mcg (0.1 %) nasal 2 spray intranasal BID #90 mL 11/04/21 04/10/22 Rx spray aerosol fluticasone propionate 50 2 spray intranasal DAILY 01/11/22 04/10/22 History mcg/actuation nasal spray,suspension (Flonase Allergy Relief) hydroxyzine HCl 25 mg tablet 50 mg PO HS #60 tabs 01/11/22 04/10/22 Rx ipratropium bromide 21 mcg (0.03 See Rx Instructions .Route 01/11/22 04/10/22 Rx %) nasal spray .COMPLEX #30 mL sodium chloride 5 % eye drops 1 drp ophthalmic (eye) TID 01/11/22 04/10/22 History ([facility] 128) sodium chloride 5 % eye ointment 1 applic ophthalmic (eye) DAILY 01/11/22 04/10/22 History ([facility] 128) hydrocortisone-acetic acid 1 %-2 % 5 drp otic (ear) BID PRN Pain and 02/06/22 04/10/22 Rx ear drops drainage #10 mL atorvastatin 10 mg tablet 10 mg PO Q5D #90 tabs 02/23/22 04/10/22 Rx losartan 100 mg tablet 50 mg PO DAILY 04/10/22 04/10/22 History PSYLLIUM or GUAR GUM FIBER SUP #1 ea 04/12/22 Rx [METAMUCIL or NUTRISOURCE FIBER SUPPLEMENT] Allergies Allergy/AdvReac Type Severity Reaction Status Date / Time apple Allergy Severe SWELLING Verified 04/10/22 10:32 fish oil Allergy Severe SWELLING Verified 04/10/22 10:32 AND ASTHMA nut - unspecified Allergy Severe SWELLING Verified 04/10/22 10:32 AND ASTHMA Quqynkm-QLT-NmE Reductase Allergy Severe MUSCLE Verified 04/10/22 10:32 Inhibitor ACHES [Gcixbhs-Ada-Hbh Reductase Inhibitor] Sulfa (Sulfonamide Allergy Severe SWELLING Verified 04/10/22 10:32 Antibiotics) AND ASTHMA Iodinated Contrast Media Allergy Intermediate Rash Verified 04/10/22 10:32 Past Med/Surg History Medical History Aortic stenosis, mild Asthma mild per patient> rare res. inh use Bicuspid aortic valve Cardiac murmur hx as child> heard occasionally Colon perforation jun 2019> low fiber diet at present Diverticular disease H/O carotid atherosclerosis History of cardiomyopathy follows with Dr. Abbasi History of tenosynovitis Hyperlipidemia Hypertension IBS (irritable bowel syndrome) Lumbar radiculopathy Mixed conductive and sensorineural hearing loss of right ear with restricted hearing of left ear Osteoarthritis Strain of right trapezius muscle Surgical History H/O oral surgery implants History of colonoscopy Hx of angioplasty 15 yrs ago Status post corneal transplant 12 yrs ago> right Family History Father Hodgkins disease Myocardial infarction Brain tumor Hypertension Primary brain tumor Heart disease Grandfather (Maternal) Pancreatic cancer Mother Myocardial infarction Parkinson disease Hypertension Heart disease Uncle Prostate cancer maternal Grandmother (Maternal) Lymphoma started out as non-Hodgkin's lymphoma and progressed to Hodgkin's lymphoma Aunt Asthma paternal Other No family history of adverse response to anesthesia No family history of bleeding disorder Denies family history of Ovarian cancer Breast cancer Colorectal cancer Social History Smoking Status: Never smoker Second Hand Exposure: Yes (father smoked); Hx Alcohol Use: No Hx Substance Use: No Preferred Language: Luxembourgish Communication Ability: Effective Visual Impairment: No Limitations Hearing Ability: Normal Hotel Reservation Agent Required: No Beliefs That Will Affect Care: None marital status: Single Current Living Situation: Alone current occupational status: employed current occupation: Used [employer] @ [employer] Feels Safe at Home: Yes Dental Care, Regularly: No Physical Activity Frequency: Does not Exercise Seatbelt Use: always Sunscreen Use: Yes Assistive Devices: None Review of Systems A total of 10 systems reviewed and were otherwise negative All systems reviewed & are unremarkable except as noted in HPI & below Physical Exam Vital Signs Vital Signs - 24 hr 04/10/22 15:07 04/10/22 18:48 Temperature 36.8 C Temperature Source Temporal Artery Scan Pulse Rate 90 Pulse Rate [Finger] 84 Respiratory Rate 18 18 Respiratory Effort / Characteristics Non-Labored Non-Labored Spontaneous Respiratory Depth Normal Normal Blood Pressure 167/111 H Blood Pressure [Right Arm] 168/101 H Blood Pressure Mean 129 Blood Pressure Mean [Right Arm] 123 Blood Pressure Position [Right Arm] Sitting Pulse Oximetry 99 98 Oxygen Delivery Method Room Air Room Air Sepsis Recent Fever Within 48 Hours No Sepsis New/Unexplained Change in Mental Status No Sepsis Action Taken by Nursing No Action Required GENERAL: alert, well appearing, well nourished, no distress, non-toxic EYE EXAM: normal conjunctiva, PERRL and EOM's grossly intact OROPHARYNX: no exudate, no erythema, lips, buccal mucosa, and tongue normal and mucous membranes are mildly dry NECK: supple, no nuchal rigidity, no adenopathy, non-tender LUNGS: Clear to auscultation. Normal chest wall mechanics, no w/r/r HEART: no murmurs, S1 normal and S2 normal ABDOMEN: abdomen soft, non-tender, normo-active bowel sounds, no masses, no rebound or guarding. BACK: Back is symmetrical on inspection and there is no deformity, no midline tenderness, no CVA tenderness. SKIN: no rashes and no bruising UPPER EXTREMITIES: upper extremities are grossly normal. FROM, nml pulses b/l. LOWER EXTREMITIES: No pitting edema. FROM, nml pulses b/l. NEURO EXAM: Normal sensorium, cranial nerves II-XII grossly intact, normal speech, no gross weakness of arms, no gross weakness of legs. Gross sensation intact. Course Administered Medications Discontinued Medications Albuterol (Albuterol Hfa 8 Gm Inhaler) 1 puffs INH BID [facility] Stop: 05/10/22 23:44 Last Admin: 04/12/22 07:11 Dose: 1 puffs Documented By: Admin: 04/11/22 19:58 Dose: 1 puffs Documented By: Admin: 04/11/22 05:08 Dose: 1 puffs Documented By: Admin: 04/11/22 00:21 Dose: 1 puffs Documented By: KIANNA Atorvastatin Calcium (Atorvastatin 10 Mg Tab) 10 mg PO Q5D@0900 [facility] Stop: 05/12/22 08:59 Last Admin: 04/12/22 07:55 Dose: 10 mg Documented By: CAREY Azelastine HCl (Azelastine Hcl 0.1% Nasal 200 Sprays/27,400 Mcg Btl) 2 sprays NA BID [facility] Stop: 05/10/22 23:44 Last Admin: 04/12/22 07:58 Dose: 2 sprays Documented By: Admin: 04/11/22 20:33 Dose: 2 sprays Documented By: Admin: 04/11/22 07:25 Dose: 2 sprays Documented By: Admin: 04/11/22 00:46 Dose: 2 sprays Documented By: CARLY Carvedilol (Carvedilol 12.5 Mg Tab) 12.5 mg PO NOW ONE Stop: 04/10/22 19:53 Last Admin: 04/10/22 20:23 Dose: 12.5 mg Documented By: TROY Carvedilol (Carvedilol 12.5 Mg Tab) 12.5 mg PO BID [facility] Stop: 05/11/22 08:59 Last Admin: 04/12/22 07:55 Dose: 12.5 mg Documented By: Admin: 04/11/22 20:34 Dose: 12.5 mg Documented By: Admin: 04/11/22 07:25 Dose: 12.5 mg Documented By: BRIAN Fexofenadine HCl (Fexofenadine Hcl 180 Mg Tab) 180 mg PO QAM [facility] Stop: 05/11/22 08:59 Last Admin: 04/12/22 07:55 Dose: 180 mg Documented By: Admin: 04/11/22 07:25 Dose: 180 mg Documented By: BRIAN Fluticasone Propionate (Fluticasone Propionate Na Spr 16 Gm Btl) 2 sprays NA DAILY [facility] Stop: 05/11/22 08:59 Last Admin: 04/12/22 07:58 Dose: 2 sprays Documented By: Admin: 04/11/22 07:26 Dose: 2 sprays Documented By: BRIAN Furosemide (Furosemide Inj 20 Mg/2 Ml Vial) 20 mg IV ONE ONE Stop: 04/11/22 20:07 Last Admin: 04/11/22 21:42 Dose: 20 mg Documented By: ZHANG Hydroxyzine HCl (Hydroxyzine Hcl 25 Mg Tab) 50 mg PO NOW STA Stop: 04/10/22 19:53 Last Admin: 04/10/22 20:24 Dose: 50 mg Documented By: TROY Hydroxyzine HCl (Hydroxyzine Hcl 25 Mg Tab) 50 mg PO HS [facility] Stop: 05/11/22 20:59 Last Admin: 04/11/22 20:34 Dose: 50 mg Documented By: ZHANG Magnesium Sulfate/Dextrose (Magnesium Sulfate / D5w) 1 gm in 100 mls @ 100 mls/hr IV Q1H [facility] Stop: 04/10/22 21:35 Last Infusion: 04/10/22 21:58 Dose: 0 mls/hr Documented By: Admin: 04/10/22 20:49 Dose: 100 mls/hr Documented By: Infusion: 04/10/22 20:44 Dose: 100 mls/hr Documented By: Admin: 04/10/22 19:44 Dose: 100 mls/hr Documented By: TROY Sodium Chloride (Nss 1000ml) 1,000 mls @ 80 mls/hr IV .[id number] [facility] Stop: 04/11/22 12:14 Last Infusion: 04/11/22 09:09 Dose: 0 mls/hr Documented By: Admin: 04/11/22 00:46 Dose: 80 mls/hr Documented By: CARLY Magnesium Sulfate/Dextrose (Magnesium Sulfate / D5w) 1 gm in 100 mls @ 50 mls/hr IV Q2H [facility] Stop: 04/11/22 03:59 Last Infusion: 04/11/22 04:51 Dose: 0 mls/hr Documented By: Admin: 04/11/22 02:32 Dose: 50 mls/hr Documented By: Infusion: 04/11/22 02:32 Dose: 50 mls/hr Documented By: Admin: 04/11/22 00:47 Dose: 50 mls/hr Documented By: CARLY Potassium Chloride/Sodium Chloride (Normal Saline W/20 Meq Kcl) 20 meq in 1,000 mls @ 125 mls/hr IV .Q8H [facility]; Protocol Stop: 05/11/22 08:59 Last Infusion: 04/12/22 11:50 Dose: 0 mls/hr Documented By: Admin: 04/12/22 08:52 Dose: 125 mls/hr Documented By: Infusion: 04/12/22 08:52 Dose: 125 mls/hr Documented By: Admin: 04/12/22 01:01 Dose: 125 mls/hr Documented By: Infusion: 04/12/22 01:01 Dose: 125 mls/hr Documented By: Admin: 04/11/22 17:56 Dose: 125 mls/hr Documented By: Infusion: 04/11/22 17:44 Dose: 125 mls/hr Documented By: Admin: 04/11/22 09:44 Dose: 125 mls/hr Documented By: BRIAN Ipratropium Pyrites (Ipratropium Pyrites Nasal [place] 0.06% 15ml) 2 sprays [place] NOW STA Stop: 04/10/22 19:53 Last Admin: 04/10/22 20:24 Dose: 2 sprays Documented By: TROY Ipratropium Pyrites (Ipratropium Pyrites Nasal [place] 0.06% 15ml) 2 sprays [place] Q12 [facility] Stop: 05/11/22 08:59 Last Admin: 04/12/22 07:58 Dose: 2 sprays Documented By: Admin: 04/11/22 20:35 Dose: 2 sprays Documented By: Admin: 04/11/22 07:27 Dose: 2 sprays Documented By: BRIAN Losartan Potassium (Losartan Potassium 50 Mg Tab) 50 mg PO DAILY [facility] Stop: 05/11/22 08:59 Last Admin: 04/12/22 07:55 Dose: 50 mg Documented By: Admin: 04/11/22 07:25 Dose: 50 mg Documented By: BRIAN Potassium Chloride (Potassium Chloride Crtab 20 Meq Tabcr) 60 meq PO NOW STA Stop: 04/10/22 23:59 Last Admin: 04/11/22 00:46 Dose: 60 meq Documented By: CARLY Potassium Chloride (Potassium Chloride Crtab 20 Meq Tabcr) 60 meq PO NOW STA Stop: 04/11/22 08:58 Last Admin: 04/11/22 09:09 Dose: 60 meq Documented By: BRIAN Potassium Chloride (Potassium Chloride Crtab 20 Meq Tabcr) 20 meq PO NOW STA Stop: 04/12/22 11:49 Last Admin: 04/12/22 11:53 Dose: 20 meq Documented By: CAREY Psyllium Hydrophilic Mucilloid (Psyllium Or Guar Gum Fiber Powder Packet) 1 pkt PO QAM [facility] Stop: 05/11/22 15:29 Last Admin: 04/12/22 07:55 Dose: 1 pkt Documented By: Admin: 04/11/22 16:29 Dose: 1 pkt Documented By: BRIAN Critical Care Time Critical Care Time: Yes Total Critical Care Time: 35 Critical care of 35 min performed to assess and manage high likelihood of life- threatening hyponatremia, involving labs and imaging performed with assessment to evaluate hyponatremia diagnosis with frequent reassessment. This time includes bedside time, treatment discussions with patient/family/consultants, documentation time and excludes procedure time. Medical Decision Making Differential Diagnosis Differential diagnoses includes but is not limited to gastritis, peptic ulcer disease, GERD, gallbladder disease, pancreatitis, small bowel obstruction, acute coronary syndrome, pericarditis, ischemic bowel, irritable bowel disease, irritable bowel syndrome, appendicitis, diverticulitis, malignancy, hernia, urinary tract infection, torsion,perforation, trauma, infectious. Medical Records Attestation: I reviewed the patient's medical records. Home Medications Current Medication List: was personally reviewed by me Laboratory Data Attestation: I reviewed the patient's lab results. Result diagrams: 04/11/22 07:03 04/12/22 09:52 Lab Results 04/10/22 04/10/22 04/10/22 Range/Units 18:42 18:42 18:42 WBC 9.70 (4.8-10.8) K/ul RBC 4.85 (3.93-5.22) M/uL Hgb 15.0 (12.0-16.0) g/dl Hct 41.0 (34.1-44.9) % MCV 84.5 (80.0-100.0) fL MCH 30.9 (25.0-34.0) pg MCHC 36.6 H (32.0-36.0) g/dL RDW Std Deviation 35.0 L (36.4-46.3) fL RDW Coeff of Kalina 11.3 L (11.5-14.5) % Plt Count 490 H (130-400) K/uL MPV 8.4 L (9.4-12.3) fL Sodium 118 L* (136-145) mmol/L Potassium 3.1 L (3.5-5.1) mmol/L Chloride 81 L (98-107) mmol/L Carbon Dioxide 27 (21-32) mmol/L Anion Gap 10 (3-11) BUN 9 (6-23) mg/dl Creatinine 1.11 (0.6-1.2) mg/dl Est Cr Clr Drug Dosing 47.5 ml/min Est GFR ( Amer) 62.1 ml/min Est GFR (Non-Af Amer) 53.6 ml/min BUN/Creatinine Ratio 8.1 L (10-20) Glucose 92 (70-99(Fasting)) mg/dl Osmolality (280-300) mOsm/kg Calcium 9.8 (8.5-10.1) mg/dl Phosphorus (2.5-4.9) mg/dl Magnesium 1.4 L (1.7-2.4) mg/dl Total Bilirubin 1.5 H (0.2-1.0) mg/dl AST 26 (13-39) U/L ALT 25 (7-52) U/L Alkaline Phosphatase 68 (34-104) U/L Total Protein 8.1 (6.0-8.3) gm/dl Albumin 4.8 (3.4-5.0) gm/dl Globulin 3.3 (2.5-4.0) gm/dl Albumin/Globulin Ratio 1.5 (0.9-2) Lipase 22 (11-82) U/L TSH 0.920 (0.300-4.500) uIu/ml SARS-CoV-2, RNA, NAAT (NEGATIVE) 04/10/22 04/10/22 04/10/22 Range/Units 18:42 18:42 18:44 WBC (4.8-10.8) K/ul RBC (3.93-5.22) M/uL Hgb (12.0-16.0) g/dl Hct (34.1-44.9) % MCV (80.0-100.0) fL MCH (25.0-34.0) pg MCHC (32.0-36.0) g/dL RDW Std Deviation (36.4-46.3) fL RDW Coeff of Kalina (11.5-14.5) % Plt Count (130-400) K/uL MPV (9.4-12.3) fL Sodium (136-145) mmol/L Potassium (3.5-5.1) mmol/L Chloride (98-107) mmol/L Carbon Dioxide (21-32) mmol/L Anion Gap (3-11) BUN (6-23) mg/dl Creatinine (0.6-1.2) mg/dl Est Cr Clr Drug Dosing ml/min Est GFR ( Amer) ml/min Est GFR (Non-Af Amer) ml/min BUN/Creatinine Ratio (10-20) Glucose (70-99(Fasting)) mg/dl Osmolality 247 L (280-300) mOsm/kg Calcium (8.5-10.1) mg/dl Phosphorus 3.1 (2.5-4.9) mg/dl Magnesium (1.7-2.4) mg/dl Total Bilirubin (0.2-1.0) mg/dl AST (13-39) U/L ALT (7-52) U/L Alkaline Phosphatase (34-104) U/L Total Protein (6.0-8.3) gm/dl Albumin (3.4-5.0) gm/dl Globulin (2.5-4.0) gm/dl Albumin/Globulin Ratio (0.9-2) Lipase (11-82) U/L TSH (0.300-4.500) uIu/ml SARS-CoV-2, RNA, NAAT NEGATIVE (NEGATIVE) MDM Narrative An order was placed for continuous cardiac monitoring. The monitor shows a rate of __88_ with _normal sinus__ rhythm. This is a 61-year-old female presents emergency department due to concern for abnormal outpatient labs. She states she was contacted by her PCP and instructed to come immediately to the emergency room due to a low sodium level. On review of outpatient labs, patient's sodium was 118. On review of EMR, patient does have a prior history of mildly low sodium and she recalls her sodium previously being in the upper 120s. Last recorded value here in EMR was 128. Patient denied any change in medications or diet. Denies any history of kidney dysfunction. Repeat labs were drawn and sent however due to concern for abnormal lab value and history of hyponatremia, case discussed with hospitalist for additional evaluation and management. Outpatient CT of abdomen and pelvis was reassuring, patient was updated on this at bedside also. Impression & Plan Hyponatremia, Abdominal pain Discharge Plan Visit Data Chief Complaint: Referred by Doctor Stated Complaint: REFERRED BY DOCTOR; ABDOMINAL PAIN ED Provider: Ramya Gottlieb Discharge Problem: Hyponatremia, Abdominal pain Patient Disposition: Admitted As Inpatient Discharge Instructions Interventions: ED Discharge Assessment Last Done: 04/10/22 22:17
[2022-04-10 19:27] LABS: Albumin Globulin Ratio 1.5 (0.9-2); Albumin Level 4.8 gm/dl (3.4-5.0); BUN Creatinine Ratio 8.1 (10-20); Bilirubin,Total 1.5 mg/dl (0.2-1.0); Calcium 9.8 mg/dl (8.5-10.1); Creatinine Clr Calc Pharmacy 47.5 ml/min; Est GFR (African American) 62.1 ml/min; Est GFR (Non-African American) 53.6 ml/min; Globulin 3.3 gm/dl (2.5-4.0); Magnesium 1.4 mg/dl (1.7-2.4); Potassium 3.1 mmol/L (3.5-5.1); Total Protein 8.1 gm/dl (6.0-8.3)
[2022-04-10] MEDS: MAGNESIUM SULFATE / D5W 1 GM/100 ML BAG IV SCH ×2 (19:44→20:49)
--- NOTE | 2022-04-10 19:47 | History & Physical Report ---
Date of Service April 10, 2022 Assessment & Plan (1) Hyponatremia: Plan: 61yo female presenting with hyponatremia, Na of 118. Baseline Na of appx 129. She is on Triamterene/HCTZ as an outpatient. Also reports approximately 1 week of decreased oral intake due to abdominal discomfort. Suspect decreased oral solute intake as well as medication effects. No neurological symptoms. TSH is within normal limits. -Admit to medical with telemetry -Check urine and serum osmolality and urine Na -Hold Triamterene/HCTZ -Gentle IVF - NSS at 80mL/hr x 1 liter -Repeat chemistry in AM (2) Electrolyte abnormality: Plan: Patient with hypomagnesemia as well as hypokalemia. -Check PO4 x 1 -Mg repletion with 4gm total - repeat level in AM -K repletion with 60mEq PO - repeat level in AM (3) Hypertension: Plan: Blood pressure elevated in ER. No chest pain, SOB or WRIGHT. -Continue Carvedilol 12.5mg po BID -Continue Losartan -Holding Triamterene/HCTZ -Continue to monitor (4) Hyperlipidemia: Plan: Chronic. -Continue Atorvastatin (5) History of cardiomyopathy: Plan: Resolved -Continue Carvedilol and Losartan (6) Asthma: Plan: No cough, SOB or wheeze -Continue Albuterol -Continue Azelastine and Ipratropium -Continue Odette F/E/N - NSS at 125mL/hr x 1 liter, Mg/K repletion, Na workup as above, Heart healthy diet as tolerated Ppx - SCDs Code - Full per discussion with patient Dispo - Admit to medical with telemetry History of Present Illness Chief Complaint: Hyponatremia Primary Care Provider: Mathew Montelongo MD Doreen Matt is a 61yo female with history of HTN and HLP presenting with hyponatremia. She has been having lower abdominal discomfort and some nausea ongoing for the last 6 days. Symptoms improved after a large bowel movement. She was seen by her PCP today and had blood work performed and a CT of the abdomen performed due to history of complicated diverticulitis in the past. Her CT was largely unremarkable. Her Na resulted at 118. She was contacted by her PCP and instructed to come to the ER. She has no additional complaints at this time. Specifically denies fever, chills, cough, SOB, chest pain, vomiting or diarrhea. She has not eaten since this AM and is feeling hungry. In the ER she is afebrile, hypertensive, otherwise HD stable. Labs as below confirm hyponatremia, also with low Mg and K. Repletion started in the ER. ER Course: Magnesium sulfate (2gm ordered - 1 administered thus far) Carvedilol 12.5mg po ordered Hydroxyzine 50mg po ordered Ipratropium nasal spray ordered Allergies Allergy/AdvReac Type Severity Reaction Status Date / Time apple Allergy Severe SWELLING Verified 04/10/22 10:32 fish oil Allergy Severe SWELLING Verified 04/10/22 10:32 AND ASTHMA nut - unspecified Allergy Severe SWELLING Verified 04/10/22 10:32 AND ASTHMA Fzlqdbz-UQS-RfZ Reductase Allergy Severe MUSCLE Verified 04/10/22 10:32 Inhibitor ACHES [Plivjar-Zsp-Ivk Reductase Inhibitor] Sulfa (Sulfonamide Allergy Severe SWELLING Verified 04/10/22 10:32 Antibiotics) AND ASTHMA Iodinated Contrast Media Allergy Intermediate Rash Verified 04/10/22 10:32 Home Medications Medication Instructions Recorded Confirmed Type prednisolone acetate 1 % eye 1 drops ophthalmic (eye) QAM 01/08/19 04/10/22 History drops,suspension epinephrine 0.3 mg/0.3 mL 0.3 mg (0.3 mL) IM UD PRN 07/15/19 04/10/22 Rx injection, auto-injector anaphylaxis #1 ea fexofenadine 180 mg tablet 180 mg PO QAM #30 tabs 08/03/20 04/10/22 Rx cholecalciferol (vitamin D3) 50 50 mcg PO DAILY 12/03/20 04/10/22 History mcg (2,000 unit) capsule carvedilol 12.5 mg tablet (Coreg) 12.5 mg PO BID #180 tabs 09/20/21 04/10/22 Rx polyethylene glycol 3350 [Miralax] PO DAILY 09/20/21 04/10/22 History triamterene 37.5 1 tab PO QAM #90 tabs 09/20/21 04/10/22 Rx mg-hydrochlorothiazide 25 mg tablet albuterol sulfate 90 mcg/actuation 1 puff inhalation BID shortness of 10/31/21 04/10/22 Rx aerosol inhaler breath #8.5 grams azelastine 137 mcg (0.1 %) nasal 2 spray intranasal BID #90 mL 11/04/21 04/10/22 Rx spray aerosol fluticasone propionate 50 2 spray intranasal DAILY 01/11/22 04/10/22 History mcg/actuation nasal spray,suspension (Flonase Allergy Relief) hydroxyzine HCl 25 mg tablet 50 mg PO HS #60 tabs 01/11/22 04/10/22 Rx ipratropium bromide 21 mcg (0.03 See Rx Instructions .Route 01/11/22 04/10/22 Rx %) nasal spray .COMPLEX #30 mL sodium chloride 5 % eye drops 1 drp ophthalmic (eye) TID 01/11/22 04/10/22 History (Prince 128) sodium chloride 5 % eye ointment 1 applic ophthalmic (eye) DAILY 01/11/22 04/10/22 History (Prince 128) hydrocortisone-acetic acid 1 %-2 % 5 drp otic (ear) BID PRN Pain and 02/06/22 04/10/22 Rx ear drops drainage #10 mL atorvastatin 10 mg tablet 10 mg PO Q5D #90 tabs 02/23/22 04/10/22 Rx losartan 100 mg tablet 150 mg PO DAILY 04/10/22 04/10/22 History Past Med/Surg History Medical History Aortic stenosis, mild Asthma mild per patient> rare res. inh use Bicuspid aortic valve Cardiac murmur hx as child> heard occasionally Colon perforation jun 2019> low fiber diet at present Diverticular disease H/O carotid atherosclerosis History of cardiomyopathy follows with Dr. Abbasi History of tenosynovitis Hyperlipidemia Hypertension IBS (irritable bowel syndrome) Lumbar radiculopathy Mixed conductive and sensorineural hearing loss of right ear with restricted hearing of left ear Osteoarthritis Strain of right trapezius muscle Surgical History H/O oral surgery implants History of colonoscopy Hx of angioplasty 15 yrs ago Status post corneal transplant 12 yrs ago> right Family History Father Hodgkins disease Myocardial infarction Brain tumor Hypertension Primary brain tumor Heart disease Grandfather (Maternal) Pancreatic cancer Mother Myocardial infarction Parkinson disease Hypertension Heart disease Uncle Prostate cancer maternal Grandmother (Maternal) Lymphoma started out as non-Hodgkin's lymphoma and progressed to Hodgkin's lymphoma Aunt Asthma paternal Other No family history of adverse response to anesthesia No family history of bleeding disorder Denies family history of Ovarian cancer Breast cancer Colorectal cancer Social History Smoking Status: Never smoker Second Hand Exposure: Yes (father smoked); Hx Alcohol Use: No Hx Substance Use: No Preferred Language: Indian Communication Ability: Effective Visual Impairment: No Limitations Hearing Ability: Normal Instructional Design Specialist Required: No Beliefs That Will Affect Care: None marital status: Single Current Living Situation: Alone current occupational status: employed 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 @ [employer] Feels Safe at Home: Yes Dental Care, Regularly: No Physical Activity Frequency: Does not Exercise Seatbelt Use: always Sunscreen Use: Yes Assistive Devices: Glasses Review of Systems Review of Systems: All systems reviewed & are unremarkable except as noted in HPI & below Physical Exam Physical Exam: General: patient resting comfortably, NAD, non-toxic in appearance, AA&O x 4 Skin: warm, dry, intact, no rashes or lesions HEENT: NC/AT, PERRL, EOMI, anicteric sclera, conjunctiva without injection, external ear normal to inspection and nontender, nares patent, slightly dry mucus membranes, dentition intact, no oropharyngeal lesions, neck supple, trachea midline, no LAD, no thyromegaly, no JVD Heart: +S1/S2, regular, no m/r/g Lungs: equal air entry bilaterally, no rales/rhonchi/wheezes Abd: +BS, soft, ND, mild lower abdominal discomfort with no rebound/guarding/peritonitis, no masses/organomegaly/ascites Ext: warm, 2+ pulses in UE/LE bilaterally, no clubbing/cyanosis or edema Neuro: nonfocal, patient AA&O x 4, speech intact, no facial droop, moving all extremities on command with equal strength 5/5 Results & Data Results & Data ([facility]) Vital Signs (Past 12 Hours) Vital Signs Temp Pulse Pulse Resp BP BP Pulse Ox 04/10/22 18:48 84 18 168/101 H 98 04/10/22 15:07 36.8 C 90 18 167/111 H 99 O2 Del Method 04/10/22 18:48 Room Air 04/10/22 15:07 Room Air Laboratory Results Laboratory Results Sodium 118 mmol/L (136-145) L* 04/10/22 18:42 Potassium 3.1 mmol/L (3.5-5.1) L 04/10/22 18:42 Chloride 81 mmol/L (98-107) L 04/10/22 18:42 Carbon Dioxide 27 mmol/L (21-32) 04/10/22 18:42 Anion Gap 10 (3-11) 04/10/22 18:42 BUN 9 mg/dl (6-23) 04/10/22 18:42 Creatinine 1.11 mg/dl (0.6-1.2) 04/10/22 18:42 Est Cr Clr Drug Dosing 47.5 ml/min 04/10/22 18:42 Est GFR ( Amer) 62.1 ml/min 04/10/22 18:42 Est GFR (Non-Af Amer) 53.6 ml/min 04/10/22 18:42 BUN/Creatinine Ratio 8.1 (10-20) L 04/10/22 18:42 Glucose 92 mg/dl (70-99(Fasting)) 04/10/22 18:42 Osmolality 247 mOsm/kg (280-300) L 04/10/22 18:42 Calcium 9.8 mg/dl (8.5-10.1) 04/10/22 18:42 Magnesium 1.4 mg/dl (1.7-2.4) L 04/10/22 18:42 Total Bilirubin 1.5 mg/dl (0.2-1.0) H 04/10/22 18:42 AST 26 U/L (13-39) 04/10/22 18:42 ALT 25 U/L (7-52) 04/10/22 18:42 Alkaline Phosphatase 68 U/L (34-104) 04/10/22 18:42 Total Protein 8.1 gm/dl (6.0-8.3) 04/10/22 18:42 Albumin 4.8 gm/dl (3.4-5.0) 04/10/22 18:42 Globulin 3.3 gm/dl (2.5-4.0) 04/10/22 18:42 Albumin/Globulin Ratio 1.5 (0.9-2) 04/10/22 18:42 Lipase 22 U/L (11-82) 04/10/22 18:42 TSH 0.920 uIu/ml (0.300-4.500) 04/10/22 18:42 SARS-CoV-2, RNA, NAAT NEGATIVE (NEGATIVE) 04/10/22 18:[address] SCAN OF THE ABDOMEN AND PELVIS WITHOUT IV CONTRAST CLINICAL HISTORY: Generalized abdominal pain. COMPARISON STUDY: Abdominal CT dated 06/15/2019. TECHNIQUE: CT scan of the abdomen and pelvis is performed from the lung bases to the proximal femora. Images are reviewed in the axial, sagittal, and coronal planes. IV contrast was not administered for this examination. Oral contrast was utilized. A dose lowering technique was utilized adhering to the principles of ALARA. CT DOSE: 789.58 mGycm FINDINGS: Lung bases: The heart is normal in size noting a small pericardial effusion. The coronary arteries are densely calcified. A 2 mm left lower lobe pulmonary nodule image #26 is unchanged. The lung bases are otherwise clear noting mild bibasilar atelectasis. There is a tiny hiatal hernia. Liver: The unenhanced liver is normal in size, contour, and attenuation. A subcentimeter hepatic hypodensity on image #67 likely represents a cyst but is too small for definitive characterization. There is no intrahepatic biliary ductal dilatation. Gallbladder: Unremarkable. Spleen: Normal in size and attenuation. Pancreas: There are scattered parenchymal calcifications. The unenhanced pancreas is otherwise normal as imaged. Adrenal glands: Unremarkable. Kidneys: There is asymmetric cortical atrophy of the right kidney as compared to the left. No hydronephrosis is seen. There are at least 4 nonobstructing right renal calculi which measure up to 3 mm. No left renal calculi are identified and there is no ureteral stone. There is no evidence of contour deforming renal mass lesion. Abdominal vasculature: The abdominal aorta is normal in course and caliber noting moderate to advanced atherosclerotic calcification. Bowel: There is no bowel obstruction. Enteric contrast reaches the rectum. There is moderate diverticulosis of the left colon without CT evidence of acute diverticulitis. The appendix is well-visualized and normal. Peritoneum: There is no intraperitoneal free air or abdominal ascites. There is a small fat-containing umbilical hernia. Lymphadenopathy: None. Pelvic viscera: The bladder, uterus, and adnexa are normal as visualized Skeletal structures: The skeletal structures are osteopenic. There is moderate to advanced lumbosacral spondylosis and scoliosis. No lytic or blastic lesions are seen. IMPRESSION: 1. No acute infectious or inflammatory findings are identified in the abdomen or pelvis. 2. Colonic diverticulosis without CT evidence of acute diverticulitis. 3. Right-sided nephrolithiasis. 4. Additional findings as above. ACT 112: Negative or not required by law. Electronically signed by: Markus Mcwilliams M.D. 04/10/2022 2:27 PM Dictated:04/10/22 1419 Transcribed: 04/10/22 141 Code Status & VTE Plan VTE Prophylaxis Plan VTE Prophylaxis will be ordered: Yes PG Care Time/CCT Total # of Minutes Spent Total Time Spent with Patient: Total time spent is greater than 50% in coordination of care (as documented) at patient's floor/unit and/or counseling patient: Coding Level of Care Code 25398 Initial Inpt Care Lvl 3 Diagnoses Hyponatremia E87.1 Electrolyte abnormality E87.8 Hypertension I10 Hyperlipidemia E78.5 History of cardiomyopathy Z86.79 Asthma J45.909
[2022-04-10] MEDS ORDERED: IPRATROPIUM BROMIDE NASAL SPRAY 0.06% 15ML NAE STA (19:52)
[2022-04-10] MEDS ORDERED: hydrOXYzine HCl 25 MG TAB PO STA (19:52)
[2022-04-10] MEDS ORDERED: carvediloL 12.5 MG TAB PO ONE (19:52)
[2022-04-10 20:56] LABS: Mean Corpuscular Hemoglobin 30.9 pg (25.0-34.0); Mean Corpuscular Hgb Conc 36.6 g/dL (32.0-36.0); Mean Corpuscular Volume 84.5 fL (80.0-100.0); Mean Platelet Volume 8.4 fL (9.4-12.3); Platelet Count 490 K/uL (130-400); RDW Coefficient of Variation 11.3 % (11.5-14.5); Red Blood Count 4.85 M/uL (3.93-5.22)
[2022-04-10] MEDS ORDERED: ONDANSETRON INJ 2 MG/ML 2 ML VIAL IV PRN (22:43)
[2022-04-10] MEDS ORDERED: ACETAMINOPHEN 325 MG TAB PO PRN (22:43)
[2022-04-10] MEDS ORDERED: SODIUM CHLORIDE 0.9% 1000ML 1,000 ML IV SCH (23:45)
[2022-04-10] MEDS ORDERED: POTASSIUM CHLORIDE CRTAB 20 MEQ TABCR PO STA (23:58)
[2022-04-11] MEDS: ALBUTEROL HFA 8 GM INHALER INH SCH ×3 (00:21→19:58)
[2022-04-11] MEDS: AZELASTINE HCL 0.1% NASAL 200 SPRAYS/27,400 MCG BTL SCH ×3 (00:46→20:33)
[2022-04-11] MEDS: MAGNESIUM SULFATE / D5W 1 GM/100 ML BAG IV SCH ×2 (00:47→02:32)
[2022-04-11] MEDS: LOSARTAN POTASSIUM 50 MG TAB PO SCH (07:25)
[2022-04-11] MEDS: carvediloL 12.5 MG TAB PO SCH ×2 (07:25→20:34)
[2022-04-11] MEDS: FEXOFENADINE HCL 180 MG TAB PO SCH (07:25)
[2022-04-11] MEDS: FLUTICASONE PROPIONATE NA SPR 16 GM BTL SCH (07:26)
[2022-04-11] MEDS: IPRATROPIUM BROMIDE NASAL SPRAY 0.06% 15ML NAE SCH ×2 (07:27→20:35)
[2022-04-11 08:03] LABS: Hematocrit (blood only) 40.9 % (34.1-44.9); Hemoglobin 15.3 g/dl (12.0-16.0); Mean Corpuscular Hemoglobin 31.1 pg (25.0-34.0); Mean Corpuscular Hgb Conc 37.4 g/dL (32.0-36.0); Mean Corpuscular Volume 83.1 fL (80.0-100.0); Mean Platelet Volume 8.3 fL (9.4-12.3); Platelet Count 414 K/uL (130-400); RDW Coefficient of Variation 11.6 % (11.5-14.5); Red Blood Count 4.92 M/uL (3.93-5.22); White Blood Count 8.12 K/ul (4.8-10.8)
[2022-04-11 08:48] LABS: Albumin Level 4.7 gm/dl (3.4-5.0); BUN Creatinine Ratio 8.7 (10-20); Bilirubin Direct 0.2 mg/dl (0-0.2); Bilirubin,Total 1.3 mg/dl (0.2-1.0); Calcium 9.3 mg/dl (8.5-10.1); Creatinine Clr Calc Pharmacy 50.9 ml/min; Est GFR (African American) 67.9 ml/min; Est GFR (Non-African American) 58.6 ml/min; Magnesium 2.7 mg/dl (1.7-2.4); Total Protein 7.8 gm/dl (6.0-8.3)
[2022-04-11] MEDS ORDERED: POTASSIUM CHLORIDE CRTAB 20 MEQ TABCR PO STA (08:57)
[2022-04-11] MEDS: NSS + 20MEQ KCL 20 MEQ/1,000 ML BAG IV SCH ×2 (09:44→17:56)
[2022-04-11] MEDS: PSYLLIUM or GUAR GUM FIBER POWDER PACKET PO SCH (16:29)
[2022-04-11 16:58] LABS: BUN Creatinine Ratio 8.8 (10-20); Calcium 8.3 mg/dl (8.5-10.1); Creatinine Clr Calc Pharmacy 51.4 ml/min; Est GFR (African American) 68.8 ml/min; Est GFR (Non-African American) 59.3 ml/min; Potassium 3.9 mmol/L (3.5-5.1)
[2022-04-11] MEDS ORDERED: FUROSEMIDE INJ 20 MG/2 ML VIAL IV ONE (20:06)
--- NOTE | 2022-04-11 20:11 | Hospitalist Progress Note ---
Date of Service April 11, 2022 Assessment & Plan (1) Hyponatremia: Plan: 61yo female presenting with hyponatremia, Na of 118. Acute on chronic. Baseline Na of appx 129. She is on Triamterene/HCTZ as an outpatient. Also reports approximately 1 week of decreased oral intake due to abdominal discomfort. Suspect decreased oral solute intake as well as medication effects. No neurological symptoms. TSH is within normal limits. -Admit to medical with telemetry Hypoosmolar hyponatremiatriamterene HCTZ stopped Seemed hypovolemic this morning 04/11 and was started on IV fluids. Sodium is remained the same few hours later. Will give IV Lasix tonight to excrete free water. -Repeat chemistry in AM (2) Electrolyte abnormality: Plan: Patient with hypomagnesemia as well as hypokalemia. Poor p.o. intake the reason -Check PO4 x 1 -Mg repletion with 4gm total - repeat level in AM -K repletion with 60mEq PO - repeat level in AM (3) Hypertension: Plan: Blood pressure elevated in ER. No chest pain, SOB or WRIGHT. -Continue Carvedilol 12.5mg po BID -Continue Losartan Stopped triamterene/HCTZ -Continue to monitor (4) Hyperlipidemia: Plan: Chronic. -Continue Atorvastatin (5) History of cardiomyopathy: Plan: Resolved -Continue Carvedilol and Losartan (6) Asthma: Plan: No cough, SOB or wheeze -Continue Albuterol -Continue Azelastine and Ipratropium -Continue Odette F/E/N - NSS at 125mL/hr x 1 liter, Mg/K repletion, Na workup as above, Heart healthy diet as tolerated Ppx - SCDs Code - Full per discussion with patient Dispo - Admit to medical with telemetry Admission and Anticipated Discharge Date Admission Date: April 10, 2022 Subjective Seen around 9 AM today. Feels 100% better she said. Has a cough because of postnasal drip for many years which she thinks was contributing to nausea. Had eaten a good breakfast though she did not get the food of her choice because she could not order due to late bed assignment last night. Appetite is not great at home but eats regular meals. Works in [employer] Physical Exam Physical Exam: Alert overweight lady, very talkative and well looking Oral mucosa dry Chest clear to auscultation Abdomen slightly distended Extremities trace edema CAR DUMPER grossly intact gait not tested Affect normal as well as normal insight and judgment Results & Data Results & Data ([facility]) Vital Signs (Past 12 Hours) Vital Signs Temp Pulse Resp BP Pulse Ox O2 Del Method 04/11/22 19:59 85 18 98 Room Air 04/11/22 16:05 37.0 C 95 H 20 142/83 H 99 Room Air 04/11/22 11:27 36.2 C L 85 19 120/80 99 Room Air Laboratory Results Abnormal lab results 04/10/22 04/11/22 04/11/22 Range/Units 18:42 00:54 07:03 MCHC 36.6 H 37.4 H (32.0-36.0) g/dL RDW Std Deviation 35.0 L 35.0 L (36.4-46.3) fL RDW Coeff of Kalina 11.3 L (11.5-14.5) % Plt Count 490 H 414 H (130-400) K/uL MPV 8.4 L 8.3 L (9.4-12.3) fL Sodium (136-145) mmol/L Potassium (3.5-5.1) mmol/L Chloride (98-107) mmol/L BUN/Creatinine Ratio (10-20) Calcium (8.5-10.1) mg/dl Magnesium (1.7-2.4) mg/dl Total Bilirubin (0.2-1.0) mg/dl Urine Osmolality 152 L (500-800) mOsm/kg 04/11/22 04/11/22 Range/Units 07:03 15:44 MCHC (32.0-36.0) g/dL RDW Std Deviation (36.4-46.3) fL RDW Coeff of Kalina (11.5-14.5) % Plt Count (130-400) K/uL MPV (9.4-12.3) fL Sodium 121 L 121 L (136-145) mmol/L Potassium 3.0 L (3.5-5.1) mmol/L Chloride 85 L 92 L (98-107) mmol/L BUN/Creatinine Ratio 8.7 L 8.8 L (10-20) Calcium 8.3 L (8.5-10.1) mg/dl Magnesium 2.7 H (1.7-2.4) mg/dl Total Bilirubin 1.3 H (0.2-1.0) mg/dl Urine Osmolality (500-800) mOsm/kg PG Care Time/CCT Total # of Minutes Spent Total Time Spent with Patient: Total time spent is greater than 50% in coordination of care (as documented) at patient's floor/unit and/or counseling patient: Coding Level of Care Code 40234 Subseq Hosp Care Lvl 3 Diagnoses Hyponatremia E87.1 Electrolyte abnormality E87.8 Hypertension I10 Hyperlipidemia E78.5 History of cardiomyopathy Z86.79 Asthma J45.909
[2022-04-11] MEDS ORDERED: hydrOXYzine HCl 25 MG TAB PO SCH (21:00)
[2022-04-12] MEDS: NSS + 20MEQ KCL 20 MEQ/1,000 ML BAG IV SCH ×2 (01:01→08:52)
[2022-04-12] MEDS: ALBUTEROL HFA 8 GM INHALER INH SCH (07:11)
[2022-04-12] MEDS: FEXOFENADINE HCL 180 MG TAB PO SCH (07:55)
[2022-04-12] MEDS: LOSARTAN POTASSIUM 50 MG TAB PO SCH (07:55)
[2022-04-12] MEDS: PSYLLIUM or GUAR GUM FIBER POWDER PACKET PO SCH (07:55)
[2022-04-12] MEDS: carvediloL 12.5 MG TAB PO SCH (07:55)
[2022-04-12] MEDS: IPRATROPIUM BROMIDE NASAL SPRAY 0.06% 15ML NAE SCH (07:58)
[2022-04-12] MEDS: AZELASTINE HCL 0.1% NASAL 200 SPRAYS/27,400 MCG BTL SCH (07:58)
[2022-04-12] MEDS: FLUTICASONE PROPIONATE NA SPR 16 GM BTL SCH (07:58)
[2022-04-12] MEDS ORDERED: ATORVASTATIN 10 MG TAB PO SCH (09:00)
[2022-04-12 10:48] LABS: BUN Creatinine Ratio 7.2 (10-20); Calcium 7.7 mg/dl (8.5-10.1); Creatinine Clr Calc Pharmacy 53.9 ml/min; Est GFR (African American) 73.1 ml/min; Potassium 3.4 mmol/L (3.5-5.1)
[2022-04-12] MEDS ORDERED: POTASSIUM CHLORIDE CRTAB 20 MEQ TABCR PO STA (11:48)
--- NOTE | 2022-04-12 11:58 | Discharge Summary ---
Date of Service April 12, 2022 Admission HPI Per Admitting Provider Doreen Matt is a 61yo female with history of HTN and HLP presenting with hyponatremia. She has been having lower abdominal discomfort and some nausea ongoing for the last 6 days. Symptoms improved after a large bowel movement. She was seen by her PCP today and had blood work performed and a CT of the abdomen performed due to history of complicated diverticulitis in the past. Her CT was largely unremarkable. Her Na resulted at 118. She was contacted by her PCP and instructed to come to the ER. She has no additional complaints at this time. Specifically denies fever, chills, cough, SOB, chest pain, vomiting or diarrhea. She has not eaten since this AM and is feeling hungry. In the ER she is afebrile, hypertensive, otherwise HD stable. Labs as below confirm hyponatremia, also with low Mg and K. Repletion started in the ER. ER Course: Magnesium sulfate (4 G) Carvedilol 12.5mg po ordered Hydroxyzine 50mg po ordered Ipratropium nasal spray ordered Principal Diagnosis acute on chronic hyponatremia hTN Discharge Exam seen at 1145, impatient to go home, walking around the halls Pleasant and very talkative Head and neck dry tongue Chest clear to auscultation S1-S2 normal sinus rhythm on telemetry Abdomen obese nontender Extremities no edema Gait normal unassisted Discharge Data Allergies Allergy/AdvReac Type Severity Reaction Status Date / Time apple Allergy Severe SWELLING Verified 04/10/22 10:32 fish oil Allergy Severe SWELLING Verified 04/10/22 10:32 AND ASTHMA nut - unspecified Allergy Severe SWELLING Verified 04/10/22 10:32 AND ASTHMA Nsetfgv-NYA-UfG Reductase Allergy Severe MUSCLE Verified 04/10/22 10:32 Inhibitor ACHES [Yxqftqe-Bpw-Wix Reductase Inhibitor] Sulfa (Sulfonamide Allergy Severe SWELLING Verified 04/10/22 10:32 Antibiotics) AND ASTHMA Iodinated Contrast Media Allergy Intermediate Rash Verified 04/10/22 10:32 Consultations 04/10/22 19:31 ED Decision to Admit Stat Hospital Course (1) Hyponatremia: 61yo female presenting with hyponatremia, Na of 118. Acute on chronic. Baseline Na of appx 129. She is on Triamterene/HCTZ as an outpatient. Also reports approximately 1 week of decreased oral intake due to abdominal discomfort. Suspect decreased oral solute intake as well as medication effects. No neurological symptoms. TSH is within normal limits. -Admit to medical with telemetry Hypoosmolar hyponatremiatriamterene HCTZ stopped 1130 - felt well, walking around halls- sodium 132, impatient to go home Drinking a gallon of mixed fluids daily since a diverticulectomy many years ago. Po intake of food not the best since a new job started a month ago she informed me. Diarrhea had been going on for a week- today one formed BM and insisted on taking her Metamucil ordered since her diverticulosis diagnosis umbilical (2) Electrolyte abnormality: Patient with hypomagnesemia as well as hypokalemia. Poor p.o. intake the reason -Mg repletion with 4gm total -2.5 HOSPITAL DAY 2 -K repletion with 60mEq PO -3.4 HOSPITAL DAY 3 - 04/12 told TO EAT K rich foods- enumerated those. (3) Hypertension: Blood pressure elevated in ER. No chest pain, SOB or WRIGHT. -Continue Carvedilol 12.5mg po BID -Continued Losartan Stopped triamterene/HCTZ- not to take again- understands bp 145/92 day of discharge- close follow up w PCP (Normotensive all day yesterday though.) (4) Hyperlipidemia: Chronic. -Continue Atorvastatin (5) History of cardiomyopathy: Resolved -Continue Carvedilol and Losartan (6) Asthma: No cough, SOB or wheeze -Continue Albuterol -Continue Azelastine and Ipratropium -Continue Odette (7) Diverticulosis: High-fiber diet as usual Plan Follow-up with PCP within 1 week for BMP check Total Time Total Time Spent Total Time Spent (In Minutes): 50 Discharge Plan Discharge Items Patient Disposition: Home - Self-Care Reason For Visit: HYPONATREMIA Discharge Diagnosis: acute on chronic hyponatremia Activity: Resume your previous activity Non-emergency contact: Primary Care Provider Call non-emergency contact if: you have any medication questions Follow-up/Referrals: Mathew Montelongo MD [Primary Care Provider] - 04/21/22 10:30 am Diet: Heart Healthy Diet Comment: eat potassium rich foods - banana, ornage, nuts, pineapple, beans Addtl Attending Provider Instructions: DO NOT drink more than 2 litre fluids daily- eat a balanced diet Resume metamucil half dose in 2-3 days if no diarrhea Please see your primary care physician within a week to repeat the basic metabolic panel ( blood work which include sodium). Pending Studies at Discharge: No Stand-Alone Forms: My [facility] Medications and DC Order Prescriptions: New (DME) Psyllium Or Guar Gum Fiber Sup [Metamucil Or Nutrisource Fiber Supplement] See Rx Instructions .Route .MEDSUPPLY Qty: 1 0RF Rx Instructions: As directed Continued epinephrine 0.3 mg/0.3 mL auto-injector 0.3 mg IM UD PRN (Reason: anaphylaxis) Qty: 1 0RF carvedilol [Coreg] 12.5 mg tablet 12.5 mg PO BID Qty: 180 3RF albuterol sulfate 90 mcg/actuation HFA aerosol inhaler 1 puff inhalation BID Qty: 8.5 3RF azelastine 137 mcg (0.1 %) aerosol,spray 2 spray intranasal BID Qty: 90 3RF atorvastatin 10 mg tablet 10 mg PO Q5D Qty: 90 3RF Rx Instructions: every 5 days prednisolone acetate 1 % drops,suspension 1 drops OP QAM Label Comments: to right eye cholecalciferol (vitamin D3) 50 mcg (2,000 unit) capsule 50 mcg PO DAILY losartan 100 mg tablet 50 mg PO DAILY fexofenadine 180 mg tablet 180 mg PO QAM Qty: 30 5RF polyethylene glycol 3350 [Miralax] PO DAILY sodium chloride [Prince 128] 5 % drops 1 drp ophthalmic (eye) TID sodium chloride [Prince 128] 5 % ointment 1 applic ophthalmic (eye) DAILY fluticasone propionate [Flonase Allergy Relief] 50 mcg/actuation spray,suspension 2 spray intranasal DAILY Rx Instructions: administer into each nostril ipratropium bromide 21 mcg (0.03 %) spray,non-aerosol See Rx Instructions .ROUTE .COMPLEX Qty: 30 5RF Rx Instructions: Use 1-2 sprays at bedtime.; administer into each nostril hydroxyzine HCl 25 mg tablet 50 mg PO HS Qty: 60 5RF hydrocortisone-acetic acid 1-2 % drops 5 drp otic (ear) BID PRN (Reason: Pain and drainage) Qty: 10 5RF Discontinued triamterene-hydrochlorothiazid 37.5-25 mg tablet 1 tab PO QAM Qty: 90 3RF Discharge Orders: Discharge Order (Routine); Ordered 04/12/22 Ordered By: Thony Serra Admission Data Admit Date/Time: 04/10/22 19:41 Attending Provider: Thony Serra Admit Provider: Laura Saxena Primary Care Provider: Mathew Montelongo Other Providers: Laura Saxena Coding Level of Care Code D/C DAY MANAGEMENT >30 MINS Diagnoses Hyponatremia E87.1 Electrolyte abnormality E87.8 Hypertension I10 Hyperlipidemia E78.5 History of cardiomyopathy Z86.79 Asthma J45.909 Diverticulosis K57.90
== END 2022-04-12 15:49 | disposition home or self-care (01) | DRG 641 ==
LOC: ED 13:59 → SUATTDRO 19:41 → 2N 19:41